=== PATIENT | female | born 1975 | race Hispanic/Latino ===

== ENCOUNTER 2019-05-21 06:19 | Day surgery (SDC) | payer BC ==
[2019-05-18 13:41] LABS: Absolute Lymphocytes (CBC) 1.6 K/uL (0.7-4.9); Basophils % 1.3 % (0-1.3); Hematocrit 31.9 % (36.0-45.0); Lymphocytes % 25.4 % (15.3-44.8); MPV 9.1 fL (7.6-11.3); RBC Red Blood Cell Count 4.56 M/uL (3.86-4.86)
[2019-05-18 13:54] LABS: Urine Appearance CLEAR; Urine Bilirubin NEGATIVE (NEG); Urine Blood NEGATIVE (NEG); Urine Color YELLOW; Urine Glucose NEGATIVE (NEG); Urine Protein NEGATIVE (NEG); Urine Urobilinogen 0.2 mg/dL (0.2-1.0); Urine pH 5.5 (5.0-7.0)
[2019-05-18 13:58] LABS: Urine Microscopic Reflex NO UMIC
[2019-05-18 18:15] LABS: Urine White Blood Cell Casts OK
[2019-05-18 18:20] LABS: Anisocytosis 1+; Blood Morphology Comment NOTED (NOT SEEN); Platelet Estimate ADEQ
--- OUTSIDE RECORDS SUMMARY | 2019-05-21 06:21 | XMS REPORT ---
:1975 Author Organization eClinicalWorks Care Team Providers Name Role Phone Herrera, Patrica Provider Role Unavailable Allergies, Adverse Reactions, Alerts Substance Reaction Event Type penicillin hives Drug Allergy Problems Problem Type Condition Code Onset Dates Condition Status Assessment Palpitations R00.2 Active Assessment Acquired hypothyroidism E03.9 Active Assessment Iron deficiency anemia, unspecified D50.9 Active iron deficiency anemia type Assessment Vitamin D deficiency E55.9 Active Problem Vitamin D deficiency E55.9 Active Problem Acquired hypothyroidism E03.9 Active Problem Palpitations R00.2 Active Problem Iron deficiency anemia, unspecified D50.9 Active iron deficiency anemia type Problem Pain in right knee M25.561 Active Problem Pain in left knee M25.562 Active Medications Medication Code Code Instructions Start End Status Dosage System Date Date Flonase [facility] 90267511145 50 MCG/DOSE Active 2 spray in Nasally Once a each day nostril Imitrex [facility] 85259759366 50 MG Orally Active 1 tablet Twice a day as needed ZyrTEC [facility] 18436025026 10 MG Orally Active 1 tablet Once a day Synthroid [facility] 58624911758 125 Active TAKE ONE TABLET BY MOUTH DAILY Ferrous Sulfate [facility] 76245055996 325 (65 Fe) MG Active 1 tablet Orally twice a day Levothyroxine [facility] 61492005479 125 MCG Orally Active 1 tablet Sodium Once a day on an empty stomach in the morning Results No Known Results Summary Purpose eClinicalWorks Submission
--- OUTSIDE RECORDS SUMMARY | 2019-05-21 06:21 | XMS REPORT ---
:1975 Author Organization eClinicalWorks Care Team Providers Name Role Phone Herrera, Na Provider Role Unavailable Allergies, Adverse Reactions, Alerts Substance Reaction Event Type penicillin hives Drug Allergy Problems Problem Type Condition Code Onset Dates Condition Status Assessment Iron deficiency anemia, unspecified D50.9 Active iron deficiency anemia type Assessment Acquired hypothyroidism E03.9 Active Assessment Palpitations R00.2 Active Assessment Seasonal allergic rhinitis, J30.2 Active unspecified trigger Assessment Vitamin D deficiency E55.9 Active Problem Palpitations R00.2 Active Problem Vitamin D deficiency E55.9 Active Problem Seasonal allergic rhinitis due to J30.1 Active pollen Problem Pain in left knee M25.562 Active Problem Iron deficiency anemia, unspecified D50.9 Active iron deficiency anemia type Problem Acquired hypothyroidism E03.9 Active Problem Pain in right knee M25.561 Active Medications Medication Code Code Instructions Start End Status Dosage System Date Date ZyrTEC [facility] 08425712069 10 MG Orally Feb , Active 1 tablet Once a day 2019 Flonase [facility] 67007772437 50 MCG/DOSE Active 2 spray in Nasally Once a each day nostril Synthroid [facility] 71602550289 125 Active TAKE ONE TABLET BY MOUTH DAILY Levothyroxine [facility] 87291870580 125 MCG Orally Active 1 tablet Sodium Once a day on an empty stomach in the morning Imitrex [facility] 12919227039 50 MG Orally Active 1 tablet Twice a day as needed Ferrous Sulfate [facility] 59379085987 325 (65 Fe) MG Active 1 tablet Orally twice a day Results No Known Results Summary Purpose eClinicalWorks Submission
--- OUTSIDE RECORDS SUMMARY | 2019-05-21 06:21 | XMS REPORT ---
:1975 Author Organization eClinicalWorks Care Team Providers Name Role Phone Herrera, Patrica Provider Role Unavailable Allergies, Adverse Reactions, Alerts Substance Reaction Event Type penicillin hives Drug Allergy Problems Problem Type Condition Code Onset Dates Condition Status Assessment Vitamin D deficiency E55.9 Active Assessment Iron deficiency anemia, unspecified D50.9 Active iron deficiency anemia type Assessment Palpitations R00.2 Active Problem Vitamin D deficiency E55.9 Active Problem Acquired hypothyroidism E03.9 Active Problem Palpitations R00.2 Active Problem Iron deficiency anemia, unspecified D50.9 Active iron deficiency anemia type Assessment Acquired hypothyroidism E03.9 Active Problem Pain in right knee M25.561 Active Problem Pain in left knee M25.562 Active Assessment Seasonal allergic rhinitis, J30.2 Active unspecified trigger Assessment Pain in left knee M25.562 Active Assessment Pain in right knee M25.561 Active Medications Medication Code Code Instructions Start End Status Dosage System Date Date Imitrex [facility] 79474451882 50 MG Orally Active 1 tablet Twice a day as needed ZyrTEC [facility] 18847108054 10 MG Orally Active 1 tablet Once a day Flonase ND 04758125963 50 MCG/DOSE Active 2 spray in Nasally Once a each day nostril Levothyroxine ND 15969432873 125 MCG Orally Active 1 tablet Sodium Once a day on an empty stomach in the morning Ferrous Sulfate [facility] 72499395812 325 (65 Fe) MG January 09, Active 1 tablet Orally twice a 2017 day Results No Known Results Summary Purpose eClinicalWorks Submission
--- OUTSIDE RECORDS SUMMARY | 2019-05-21 06:22 | XMS REPORT ---
:1975 Author Organization eClinicalWorks Care Team Providers Name Role Phone Herrera, Na Provider Role Unavailable Allergies, Adverse Reactions, Alerts Substance Reaction Event Type penicillin hives Drug Allergy Problems Problem Type Condition Code Onset Dates Condition Status Problem Pain in left knee M25.562 Active Problem Iron deficiency anemia, unspecified D50.9 Active iron deficiency anemia type Problem Seasonal allergic rhinitis, J30.2 Active unspecified trigger Problem Seasonal allergic rhinitis due to J30.1 Active pollen Problem BMI 29.0-29.9,adult Z68.29 Active Problem Acquired hypothyroidism E03.9 Active Problem Pain in right knee M25.561 Active Problem Palpitations R00.2 Active Problem Vitamin D deficiency E55.9 Active Assessment Seasonal allergic rhinitis, J30.2 Active unspecified trigger Assessment Vitamin D deficiency E55.9 Active Assessment Iron deficiency anemia, unspecified D50.9 Active iron deficiency anemia type Assessment BMI 29.0-29.9,adult Z68.29 Active Assessment Acquired hypothyroidism E03.9 Active Medications Medication Code Code Instructions Start End Status Dosage System Date Date Ferrous Sulfate [facility] 76104091619 325 (65 Fe) MG Active 1 tablet Orally twice a day Levothyroxine [facility] 59476271368 125 MCG Orally Active 1 tablet Sodium Once a day on an empty stomach in the morning Levothyroxine [facility] 71683958332 125 MCG Active TAKE ONE Sodium TABLET BY MOUTH EVERY MORNING ON AN EMPTY STOMACH Synthroid [facility] 33451496524 125 Active TAKE ONE TABLET BY MOUTH DAILY Imitrex ND 54247335791 50 MG Orally Active 1 tablet Twice a day as needed Flonase ND 66601253333 50 MCG/DOSE Active 2 spray in Nasally Once a each day nostril Results No Known Results Summary Purpose eClinicalWorks Submission
[2019-05-21] MEDS ORDERED: SCOPOLAMINE HYDROBROMIDE PATCH TD ONE (06:49)
[2019-05-21] MEDS ORDERED: Ringers Lactate 1,000 ML IV ONE ×3 (06:49→12:06)
[2019-05-21] MEDS ORDERED: CEFAZOLIN/SWI 2gm 2 GM/20 ML SYR ONE (06:50)
[2019-05-21] MEDS ORDERED: ROCURONIUM 50 MG/5 ML VIAL IV ONE (07:01)
[2019-05-21] MEDS ORDERED: PROPOFOL 200 MG/20 ML VIAL IV ONE (07:01)
[2019-05-21] MEDS ORDERED: ONDANSETRON 4 MG/2 ML VIAL ONE ×2 (07:02→11:36)
[2019-05-21] MEDS ORDERED: MIDAZOLAM HCL 2 MG/2 ML INJ ONE (07:02)
[2019-05-21] MEDS ORDERED: LIDOCAINE 2% MPF 5 ML VIAL ONE (07:02)
[2019-05-21] MEDS ORDERED: FENTANYL CITR 250 MCG/5 ML ONE (07:02)
[2019-05-21] MEDS ORDERED: dexAMETHasone 10 MG/ML VIAL ONE (07:02)
[2019-05-21] MEDS ORDERED: GLYCOPYRROLATE 0.2 MG/ML SYR ONE (07:05)
[2019-05-21] MEDS ORDERED: BUPIVACAINE 0.25% PF 10 ML VIAL ONE (07:39)
[2019-05-21] MEDS: BUPIVACAINE 0.25% PF 10 ML VIAL ONE ×3 (09:11→10:10)
[2019-05-21] MEDS ORDERED: KETOROLAC 30 MG/ML INJ ONE (09:57)
[2019-05-21] MEDS ORDERED: METHYLENE BLUE 0.5% 10 ML AMP ONE (10:07)
[2019-05-21] MEDS ORDERED: MORPHINE 10 MG/ML VIAL ONE (10:24)
[2019-05-21 12:08] VITALS: TEMP 98.2
[2019-05-21] MEDS ORDERED: METOCLOPRAMIDE 10 MG/2mL INJ ONE (12:17)
[2019-05-21 12:58] VITALS: O2SAT 99
[2019-05-21 13:33] VITALS: BP 110/52
--- NOTE | 2019-05-22 02:25 | OP ---
Date of Procedure: 05/21/2019 Surgeon: Marylou Joseph MD Tearer: Jaleesa Wallace. Preoperative Diagnoses: Menorrhagia (AUB-A/E), pelvic pain. Postoperative Diagnoses: Menorrhagia (AUB-A/E), pelvic pain, and endometriosis of the pelvic periton eum. Procedures Performed: Total laparoscopic hysterectomy, bilateral salpingectomy, endometriosis excisi on, and cystoscopy. Anesthesia: General endotracheal. Estimated Blood Loss: Minimal. Specimens: Uterus, bilateral tubes. Complications: None. Drains: None. Findings: Uterus, enlarged endometriosis seen in the left lateral wall, lateral and immediately supe rior to the ureteric tunnel on the left side. Other endometriotic implants in the bilateral tubal li gation area and on the utero-ovarian ligament. Cystoscopy: Both ureteric orifices were well visualized and strong jets of urine were seen from both and no evidence of any foreign body in the bladder. Indication: The patient is a 43-year-old with pelvic pain, heavy menstrual bleeding, failed medical treatment. Endometrial sampling was negative for atypia or malignancy. Recently quit smoking. So, not a good candidate for oral contraceptives. Declined depot medroxyprogesterone acetate. We discus sed endometrial ablation versus laparoscopic hysterectomy, and given the pain that the patient has, o ne which was not only in the left lower quadrant, but also in the low back. Possibility of adenomyos is was considered and she was consented for hysterectomy, bilateral salpingectomy with ovarian preser vation due to her age. She is a smoker and she had quit smoking 6 months ago. Description Of Procedure: After informed consent was verified, the patient was taken back to OR, clara tico in a supine fashion on the operating table. After general anesthesia given, she was placed in a dorsal lithotomy position using Angel stirrups. Pelvic exam performed. Uterus anteflexed. No adnex al masses. No nodularity in the cul-de-sac, uterus, and small bowel. Abdomen, vulva, vagina, and pe rineum were prepped and draped in a sterile fashion. Britt was placed to drain the bladder and large VCare was introduced into the uterus and fixed in place. This area was draped and Britt attached to cysto tubing for retrograde filling through another bag that was emptied 300. This was left on the floor for drainage. A 1 cm supraumbilical incision was made with a scalpel using the open laparoscopy technique. Fascia was incised and 0 Vicryl suture was used to tack on both ends. Sharp entry into the peritoneal cavit y. S-retractor was placed, Mine introduced, site of entry checked, unremarkable; upper abdominal s urface unremarkable as well. The patient was placed in steep Trendelenburg position. Uterus and claudette ateral tubes and ovaries were inspected and findings as above. 5 mm left lower quadrant and right lo wer quadrant ports were placed under direct vision. Suprapubic 8 mm port was placed. After visualizing the ureters from pelvic brim to the ureteric tunnel and they were noted without any anatomical distortion, then the surgery was started. Endometriosis was identified in the left later al wall, as discussed in the findings. Plan was to excise the endometriosis along with the hysterect estefania. Also with the tubes, the tubes were carefully dissected. The left 1 starting at the distal end and c oming towards the proximal end. Endometriosis was excised from the mesosalpinx and the utero-ovarian ligament and included with the specimen and the specimen was left in the posterior cul-de-sac. Then , on the right side, the tube was disconnected partially and then the procedure started. Utero-ovari an ligament was taken down. The area of the endometriosis on the utero-ovarian ligament was cauteriz ed. Then, round ligament was taken down. There was small bleeding at the Govea artery. This was cauterized and cut again. Then, the broad ligament was opened up, anterior peritoneum raised to crea te the bladder flap and posterior peritoneum taken down to the uterosacrals, and then the broad ligam ent was skeletonized with the help of the LigaSure. Vessels were exposed and then on the opposite si de, similar dissection was performed. Utero-ovarian ligament, round ligament were all taken down the anterior peritoneum to connect the bladder flap and posterior peritoneum to the uterosacral, exposin g the broad ligament vessels. These were taken down with the LigaSure and the vessels were exposed o n the right side and skeletonized. Then, the bladder flap was opened up. Vesicovaginal space was en tered and the bladder was dissected inferiorly at least 1.5 cm from the edge of the VCare cup. Once this was performed on both sides, mostly staying in the center, then the vessels were taken down with the help of the bipolar basket tip and then the LigaSure. Cardinal ligament was taken down as well. On the left side, similar dissection was performed and the vessels were disconnected and then the b road ligaments were taken down. There was slightly more bleeding on this side than on the opposite s ronny, but it was minimal. Circumferential colpotomy performed with a monopolar hook blade and specime n pulled out through the vagina. The tube on the right side was removed completely with the LigaSure and then both tubes were retrieved through the vagina as well. The endometriosis on the left lateral wall was dissected and included in the specimen as dissection w as performed when the posterior broad ligament was opened up. Lateral dissection was performed caref ully making sure that this was not close to the ureter. The ureter was dissected inferiorly and medi ally. This was included with serosal specimen off the uterus. Vaginal cuff was closed after thorough irrigation and suction were performed with 0 Vicryl sutures. There were 2 simples at both ends and 3 [id number]-[id number] in the middle, closing all layers. Right ovariopexy was performed as the ovary appeared to be hanging too far with 3-0 Vicryl suture and this was sutured to the base of the round ligament and these were tied loosely just enough to close without creating a window. After thorough irrigation and suction were performed, there was excellent hemostasis. All the trocar s were removed under direct vision. Local was injected, 0.25% Marcaine 10 cc in all 4 port sites at the fascia and the skin. Fascia at the umbilicus closed with a 0 Vicryl in neeqje-ay-rigmu fashion a nd all other incisions closed with the help of 4-0 Vicryl interrupted sutures and Dermabond placed. The vaginal sponge with the lap and the Britt were all removed. Cystoscopy was performed with a 17-F rench sheath, 30-degree lens, normal saline. Excellent strong jets of urine from both. Methylene bl ue was injected while I was still closing the cuff, and so there were visible jets of urine from both . Bladder was drained out. No evidence of any foreign body. The patient was recovered from anesthe sadaf after instrument, needle, and sponge counts x2 were correct at the end of the case. The patient will follow up with me in 1 week. NAHID/LAURI Voice ID: [id number] Report ID: [id number]
== END 2019-05-21 13:35 | disposition home or self-care (01) ==
LOC: OR 06:19
PROVIDERS: ATTEND Obstetrics & Gynecology
PROC: 0UT74ZZ Resection of Bilateral Fallopian Tubes, Percutaneous Endoscopic Approach (ICD-10-PCS; 2019-05-21)
PROC: 0DBW4ZZ Excision of Peritoneum, Percutaneous Endoscopic Approach (ICD-10-PCS; 2019-05-21)
PROC: 0US04ZZ Reposition Right Ovary, Percutaneous Endoscopic Approach (ICD-10-PCS; 2019-05-21)
PROC: 0UT94ZZ Resection of Uterus, Percutaneous Endoscopic Approach (ICD-10-PCS; principal; 2019-05-21 07:30)
DX: N92.0 Excessive and frequent menstruation with regular cycle (principal); N80.3 Endometriosis of pelvic peritoneum; R10.2 Pelvic and perineal pain; E03.9 Hypothyroidism, unspecified; F32.9 Major depressive disorder, single episode, unspecified; F41.9 Anxiety disorder, unspecified; M19.90 Unspecified osteoarthritis, unspecified site; Z88.0 Allergy status to penicillin; Z87.891 Personal history of nicotine dependence
CPT/HCPCS: 58571; 58662; 85025; 36415; 86900; 86850; 81025; 86901; 88307; 81003; 58999; J2704; J2765; J2250; J3010; J1100; J0690; J2405 ×2

== ENCOUNTER 2021-02-26 19:01 | Emergency (ER) | payer BC ==
--- OUTSIDE RECORDS SUMMARY | 2021-02-26 19:03 | XMS REPORT | Continuity of Care Document ---
:1975 Author Organization [facility] t Address [address] [place] [address] Care Team Providers Name Role Phone Unavailable Unavailable Unavailable Problems This patient has no known problems. Allergies, Adverse Reactions, Alerts Allergy Allergy Status Severity Reaction(s) Onset Inactive Treating Comm ents Source Name Type Date Date Clinician penicill Adverse Active hives [facility] Medications Ordered Filled Start Stop Current Ordering Indication Dosage Frequency Signature Comments Components Source Medication Medication Date Date Medication? Clinician (SIG) Name Name Ferrous Ferrous 2018-0 Yes Na Herrera [address] [facility] Sulfate Sulfate 5-03 [facility] Flonase Flonase Yes Na Herrera [address] [facility] Levothyroxi Levothyroxi Yes Na Herrera [address] [facility] ne Sodium ne Sodium on an [facility] - empty [facility] stomach in l the Outpati morning ent Clinics Levothyroxi Levothyroxi Yes Na Herrera TAKE ONE [facility] ne Sodium ne Sodium TABLET BY [facility] EVERY l MORNING ON Outpati AN EMPTY ent STOMACH Clinics Flonase Flonase Yes Na Herrera [address] [facility] Procedures This patient has no known procedures. Encounters Start End Encounter Admission Attending Care Care Encounter Source Date/Time Date/Time Type Type Clinicians Facility Department ID 2020-12-01 2020-12-01 [facility] [id number] [facility] 2020-11-03 2020-11-03 [facility] [id number] [facility] 2020-07-14 2020-07-14 [facility] [id number] [facility] 2019-06-09 2019-06-09 [facility] [id number] [facility] 13:20[facility] 13:20:00 [facility] [employer] [facility] Outpati ent Clinics 2018-12-08 2018-12-08 [facility] [id number] [facility] 13:20:00 13:20:00 [facility] [employer] [facility] [employer] [facility] Outpati ent Clinics 2018-05-07 2018-05-07 [facility] [id number] [facility] 14:30[facility]00 14:30:00 [facility] Outpati ent Clinics 2018-02-05 2018-02-05 [facility] [id number] [facility] 14:30:00 14:30:00 [facility] Medicine Outpati ent Clinics 2018-01-09 2018-01-09 [facility] [id number] [facility] 14:45:00 14:45:00 [facility] Outpat[facility] Clinics Results This patient has no known results.
[2021-02-26] MEDS ORDERED: ACETAMINOPHEN 500 MG TAB ONE (19:53)
[2021-02-26] MEDS ORDERED: DOXYCYCLINE 100 MG CAP PO ONE (20:12)
[2021-02-26] MEDS ORDERED: TETANUS & DIPHTHERIA TOX,ADULT 0.5 ML VIAL ONE (20:12)
[2021-02-26] MEDS ORDERED: CEFAZOLIN SODIUM 1 GM/VIAL ONE (20:12)
[2021-02-26] MEDS ORDERED: BUPIVACAINE 0.5% PF 10 ML VIAL ONE (20:12)
[2021-02-26] MEDS ORDERED: WATER FOR INJ,STERILE 10 ML ONE (20:12)
[2021-02-26] MEDS ORDERED: LIDOCAINE 1% MPF 30 ML VIAL ONE (20:13)
--- NOTE | 2021-02-26 21:32 | RAD REPORT ---
EXAM DESCRIPTION: RAD - Hand Left 3 View - 02/26/2021 8:59 pm CLINICAL HISTORY: laceration COMPARISON: None. FINDINGS: No fracture, dislocation or periosteal reaction noted. Laceration is seen near the ventral aspect third digit base. A punctate 1 mm foreign body is seen. No other foreign bodies confirmed. IMPRESSION: Punctate 1 mm size foreign body within a laceration base of the third digit left hand.
--- NOTE | 2021-02-26 21:34 | RAD REPORT ---
EXAM DESCRIPTION: RAD - Hand Right 3 View - 02/26/2021 8:59 pm CLINICAL HISTORY: Laceration COMPARISON: No comparisons FINDINGS: No fracture is identified. There is no dislocation or periosteal reaction noted. On the o blique view there is a punctate 1 mm radiopaque density between the distal shaft second and third met acarpal bones. This is not confirmed on the other two views. Lateral view shows a film artifact in th e soft tissues. IMPRESSION: No right hand bone or joint abnormality. Questionable radiopaque punctate 1 mm foreign body between the second and third metacarpals. This is not seen on the other two views is potentially artifact. Correlation is needed to determine if there is a laceration in this region.
--- NOTE | 2021-02-26 21:49 | ER ---
Nurse's Notes [facility] Name: Anat Elaine Age: 45 yrs Sex: Female : 1975 Arrival Date: 02/26/2021 Time: 19:05 Bed 26 Private MD: Diagnosis: Laceration without foreign body of right hand;Laceration with foreign body of left hand Presentation: 02/26 19:27 Chief complaint: Patient states: Fell on [place] and landed on her hands lac to ea both hands, occurred about an hour ago. Coronavirus screen: At this time, the client does not indicate any symptoms associated with coronavirus-19. Ebola Screen: No symptoms or risks identified at this time. Complicating Factors: There are no complicating factors for this patient. Initial Sepsis Screen: Does the patient meet any 2 criteria? No. Patient's initial sepsis screen is negative. Does the patient have a suspected source of infection? No. Patient's initial sepsis screen is negative. Risk Assessment: Do you want to hurt yourself or someone else? Patient reports no desire to harm self or others. 19:27 Method Of Arrival: Ambulatory ea 19:27 Acuity: TOMMY 3 ea Historical: - Allergies: 19:35 PENICILLINS; em - PMHx: 19:35 None; em - PSHx: 19:35 None; em - Immunization history:: Adult Immunizations not up to date. - Social history:: Smoking status: unknown. Screenin:35 Abuse screen: Denies threats or abuse. Nutritional screening: No deficits noted. em Tuberculosis screening: No symptoms or risk factors identified. Fall Risk Fall in past 12 months (25 points). No secondary diagnosis (0 pts). Total Galindo Fall Scale indicates Low Risk Score (25-44 pts). Side Rails Up X 2 Placed close to Nursing Station Family Present and informed to notify staff if they need to leave bedside. Assessment: 19:40 General: Appears in no apparent distress. uncomfortable, Behavior is calm, cooperative. em Pain: Complains of pain in right hand and left hand. Neuro: Level of Consciousness is awake, alert, obeys commands, Oriented to person, place, time, situation. Cardiovascular: Capillary refill < 3 seconds Patient's skin is warm and dry. Respiratory: Airway is patent Respiratory effort is even, unlabored, Respiratory pattern is regular, symmetrical. Derm: Skin is intact, is healthy with good turgor, Skin is pink, warm \T\ dry. Musculoskeletal: Capillary refill < 3 seconds, Range of motion: intact in all extremities. Injury Description: Laceration sustained to palm of right hand and palm of left hand is clean, 2.6 to 7.5 cm long, bleeding moderately, is bleeding a small amount. 21:30 Reassessment: Patient appears in no apparent distress at this time. Patient and/or em family updated on plan of care and expected duration. Pain level reassessed. Patient is alert, oriented x 3, equal unlabored respirations, skin warm/dry/pink. Vital Signs: 20:00 BP 134 / 87; Pulse 95; Resp 18; Temp 98.5; Pulse Ox 95% on R/A; Weight 83.91 kg; Height em 5 ft. 7 in. (170.18 cm); 20:00 Body Mass Index 28.97 (83.91 kg, 170.18 cm) em ED Course: 19:05 Patient arrived in ED. cf2 19:31 Triage completed. ea 19:35 Arm band placed on. em 19:35 Patient has correct armband on for positive identification. em 19:37 Maxwell Yost NP is PHCP. pm1 19:37 Marino Loza MD is Attending Physician. pm1 19:45 Rocky Ronquillo, RN is Primary Nurse. em 20:59 Hand Left 3 View XRAY In Process Unspecified. EDMS 20:59 Hand Right 3 View XRAY In Process Unspecified. EDMS 21:30 Assist provider with laceration repair on left hand and right hand that was between 2.6 em to 7.5 cm using sutures. Set up tray. Performed by Maxwell Yost CLAIM ANALYST Dressed with 4X4s, Kerlix, Neosporin, Patient tolerated well. 21:48 Khang Purcell MD is Referral Physician. pm1 21:57 Hand Left 3 View XRAY In Process Unspecified. EDMS 22:18 Patient did not have IV access during this emergency room visit. em Administered Medications: 19:34 Drug: Tylenol 1000 mg Route: PO; ea 21:26 Follow up: Response: No adverse reaction em 19:56 Drug: Tetanus-Diphtheria Toxoid Adult 0.5 ml {Cleaner Signs: [facility]. Exp: em 10/29/2022. Lot #: [id number]. } Route: IM; Site: right deltoid; 21:27 Follow up: Response: No adverse reaction em 19:59 Drug: Ancef (cefazolin) 1 grams Route: IM; Site: left gluteus; em 21:26 Follow up: Response: No adverse reaction em 19:59 Drug: Doxycycline 100 mg Route: PO; em 21:26 Follow up: Response: No adverse reaction em 20:00 Drug: Lidocaine (1 %) 5 ml Volume: 5 ml; Route: Infiltration; em 20:30 Follow up: Response: No adverse reaction; Pain is decreased em 20:00 Drug: Bupivacaine (0.5 %) 10 ml Volume: 10 ml; Route: Infiltration; em 20:30 Follow up: Response: No adverse reaction; Pain is decreased em Outcome: 21:48 Discharge ordered by MD. pm1 22:18 Discharged to home ambulatory, with family. em 22:18 Condition: improved 22:18 Discharge instructions given to patient, family, Instructed on discharge instructions, follow up and referral plans. medication usage, wound care, Demonstrated understanding of instructions, follow-up care, medications, wound care, Prescriptions given X 2. 22:19 Patient left the ED. em Signatures: Dispatcher [employer] Rocky Cerna RN RN em Marinas, Patrick, CLAIM ANALYST CLAIM ANALYST pm1 Melonie Elias RN RN ea Frazier, Celesta cf2 Corrections: (The following items were deleted from the chart) 22:19 22:18 No provider procedures requiring assistance completed. em em
--- NOTE | 2021-02-26 21:49 | EDPHYS ---
Physician Documentation [facility] Name: Anat Elaine Age: 45 yrs Sex: Female : 1975 Arrival Date: 02/26/2021 Time: 19:05 Bed 26 Private MD: ED Physician Marino Loza HPI: 02/26 19:46 This 45 yrs old Female presents to ER via Ambulatory with complaints of pm1 Laceration To Hand. 19:46 The patient has a laceration related to: Fishing occurred outdoors, and fall on oyster pm1 bed. The laceration(s) is(are) located on the palm of right hand and palm of left hand. Onset: The symptoms/episode began/occurred just prior to arrival. Associated signs and symptoms: The patient has no apparent associated signs or symptoms, Pertinent negatives: deformity, numbness distal to injury. The patient has not experienced similar symptoms in the past. The patient has not recently seen a physician. Historical: - Allergies: 19:35 PENICILLINS; em - PMHx: 19:35 None; em - PSHx: 19:35 None; em - Immunization history:: Adult Immunizations not up to date. - Social history:: Smoking status: unknown. ROS: 19:46 Constitutional: Negative for fever, chills, and weight loss, Cardiovascular: Negative pm1 for chest pain, palpitations, and edema, Respiratory: Negative for shortness of breath, cough, wheezing, and pleuritic chest pain. 19:46 MS/extremity: Negative for decreased range of motion, deformity. 19:46 Skin: Positive for laceration(s), of the palm of right hand and palm of left hand. 19:46 All other systems are negative. pm1 Exam: 19:46 Constitutional: This is a well developed, well nourished patient who is awake, alert, pm1 and in no acute distress. Head/Face: Normocephalic, atraumatic. Neck: Trachea midline, no thyromegaly or masses palpated, and no cervical lymphadenopathy. Supple, full range of motion without nuchal rigidity, or vertebral point tenderness. No Meningismus. 19:46 Eyes: Exam is negative for acute changes, Extraocular movements: intact throughout, Conjunctiva: no acute changes, no injection. 19:46 ENT: Exam is negative for acute changes, Mouth: Lips: normal, Oral mucosa: normal, pink and intact, moist. 19:46 Cardiovascular: Rate: normal, Rhythm: regular, Pulses: no pulse deficits are appreciated. 19:46 Respiratory: Exam negative for acute changes, respiratory distress, shortness of breath. 19:46 Musculoskeletal/extremity: ROM: full active range of motion, in the left hand and right hand and left wrist and right wrist, Circulation is intact in all extremities. Sensation intact. 19:46 Skin: injury, laceration(s), the wound is approximately 3 cm(s), with a depth of 1 cm(s), of the heel of right hand, the second wound is approximately 3 cm(s), with a depth of 0.3 cm(s), of the palmar aspect of proximal phalanx of left middle finger and palm of left hand. 19:46 Neuro: Exam negative for acute changes, Orientation: is normal, Mentation: is normal, Motor: is normal, moves all fours, strength is 5/5 in all extremities. Vital Signs: 20:00 BP 134 / 87; Pulse 95; Resp 18; Temp 98.5; Pulse Ox 95% on R/A; Weight 83.91 kg; Height em 5 ft. 7 in. (170.18 cm); 20:00 Body Mass Index 28.97 (83.91 kg, 170.18 cm) em Laceration: 21:35 Wound Repair of 3cm ( 1.2in ) subcutaneous laceration to heel of right hand. pm1 Irregularly shaped.. Distal neuro/vascular/tendon intact. Anesthesia: Local anesthetic administered with 3 mls of Lido/Marcaine. Wound prep: Extensive cleansing with betadine with hibiclenz by nd, Wound irrigation with saline by nd, Particulate matter removal of dirt, Wound explored extensively, Copious irrigation. Skin closed with 3 4-0 Prolene using simple sutures and sterile technique. Dressed with 4x4's, Gina. Patient tolerated well. 21:35 Wound Repair of 3cm ( 1.2in ) subcutaneous laceration to palmar aspect of proximal pm1 phalanx of left middle finger and palm of left hand. Irregularly shaped.. Distal neuro/vascular/tendon intact. Anesthesia: Local anesthetic administered with 2 mls of Lido/Marcaine. Wound prep: Extensive cleansing with betadine with hibiclenz by me, Wound irrigation with saline by me, Particulate matter removal of dirt by me, Wound explored extensively, Copious irrigation. Skin closed with 1 4-0 Prolene using simple sutures and sterile technique. Dressed with 4x4's, Gina. Patient tolerated well. MDM: 19:40 Patient medically screened. pm1 21:41 ED course: Foreign body present to right hand on x-ray not located near laceration. pm1 Likely dirt present on surface of hand. 21:41 Special discussion: I discussed in detail with the patient the higher chance of wound pm1 infection based on his presenting history. unable to remove left hand punctuate 1 mm foreign body. Wound explored extensively, scrubbed with Hibiclens brush, and copiously irrigated with Betadine and NS. Laceration area of the foreign body was not closed and explained to patient. 21:41 Counseling: I had a detailed discussion with the patient and/or guardian regarding: the pm1 historical points, exam findings, and any diagnostic results supporting the discharge/admit diagnosis, radiology results, the need for outpatient follow up, a hand specialist, to return to the emergency department if symptoms worsen or persist or if there are any questions or concerns that arise at home. 21:50 ED course: [place] reviewed. pm1 22:14 Data reviewed: vital signs. Data interpreted: Pulse oximetry: on room air is 95 %. pm1 Interpretation: normal. 02/26 20:29 Order name: Hand Left 3 View XRAY; Complete Time: 21:40 pm1 02/26 20:29 Order name: Hand Right 3 View XRAY; Complete Time: 21:40 pm1 02/26 21:27 Order name: Hand Left 3 View XRAY pm1 02/26 19:44 Order name: Prolene, Sutures; Complete Time: 19:59 pm1 02/26 19:44 Order name: Gloves, Sterile; Complete Time: 19:59 pm1 02/26 19:44 Order name: Setup Suture Tray; Complete Time: 19:59 pm1 Administered Medications: 19:34 Drug: Tylenol 1000 mg Route: PO; ea 21:26 Follow up: Response: No adverse reaction em 19:56 Drug: Tetanus-Diphtheria Toxoid Adult 0.5 ml {Partner: [employer]. Exp: em 10/29/2022. Lot #: [id number]. } Route: IM; Site: right deltoid; 21:27 Follow up: Response: No adverse reaction em 19:59 Drug: Ancef (cefazolin) 1 grams Route: IM; Site: left gluteus; em 21:26 Follow up: Response: No adverse reaction em 19:59 Drug: Doxycycline 100 mg Route: PO; em 21:26 Follow up: Response: No adverse reaction em 20:00 Drug: Lidocaine (1 %) 5 ml Volume: 5 ml; Route: Infiltration; em 20:30 Follow up: Response: No adverse reaction; Pain is decreased em 20:00 Drug: Bupivacaine (0.5 %) 10 ml Volume: 10 ml; Route: Infiltration; em 20:30 Follow up: Response: No adverse reaction; Pain is decreased em Disposition: 02/27 04:18 Co-signature as Attending Physician, Marino Loza MD. 7 Disposition: 02/26/21 21:48 Discharged to Home. Impression: Laceration without foreign body of right hand, Laceration with foreign body of left hand. - Condition is Stable. - Discharge Instructions: Laceration Care, Adult. - Prescriptions for Doxycycline Hyclate 100 mg Oral Tablet - take 1 tablet by ORAL route every 12 hours; 20 tablet. Tramadol 50 mg Oral Tablet - take 1 tablet by ORAL route every 8 hours as needed; 12 tablet. - Work release form, Medication Reconciliation Form, Thank You Letter, Antibiotic Education, Prescription Opioid Use form. - Follow up: Emergency Department; When: As needed; Reason: Worsening of condition. Follow up: [facility]; When: 2 - 3 days; Reason: Recheck today's complaints, Continuance of care, Re-evaluation by your physician. - Problem is new. - Symptoms have improved. Signatures: Dispatcher [employer] EDRocky Davidson RN RN Maxwell Rivera, MIKE [employer]OP HAMMER SETTER UP pm1 Melonie Elisa RN RN ea Holmes, Maurice, MD MD 7 Corrections: (The following items were deleted from the chart) 02/26 22:19 21:48 02/26/2021 21:48 Discharged to Home. Impression: Laceration without foreign body em of right hand; Laceration with foreign body of left hand. Condition is Stable. Discharge Instructions: Laceration Care, Adult. Prescriptions for Doxycycline Hyclate 100 mg Oral Tablet - take 1 tablet by ORAL route every 12 hours; 20 tablet, Diclofenac Sodium 75 mg Oral Tablet, Delayed Release (E.C.) - take 1 tablet by ORAL route 2 times per day As needed; 30 tablet. and Forms are Medication Reconciliation Form, Thank You Letter, Antibiotic Education, Prescription Opioid Use. Follow up: Emergency Department; When: As needed; Reason: Worsening of condition. Follow up: [facility]; When: 2 - 3 days; Reason: Recheck today's complaints, Continuance of care, Re-evaluation by your physician. Problem is new. Symptoms have improved. pm1
[2021-02-26] MEDS ORDERED: TRAMADOL HCL 50 MG TAB ONE (22:20)
[2021-02-26 22:33] VITALS: BP 134/87; TEMP 98.5; O2SAT 95
--- NOTE | 2021-02-27 07:55 | RAD REPORT ---
EXAM DESCRIPTION: RAD - Hand Left 3 View - 02/26/2021 9:58 pm CLINICAL HISTORY: laceration, foreign body removal COMPARISON: February 26 FINDINGS: No new bone or joint finding. Laceration at the base of the third digit again noted. Punct ate foreign body or foreign body remnant is still seen on these images.
== END 2021-02-26 22:19 | disposition home or self-care (01) ==
LOC: ER 19:01
PROC: 0JQK0ZZ Repair Left Hand Subcutaneous Tissue and Fascia, Open Approach (ICD-10-PCS; principal; 2021-02-26)
PROC: 0JQJ0ZZ Repair Right Hand Subcutaneous Tissue and Fascia, Open Approach (ICD-10-PCS; 2021-02-26)
DX: S61.412A Laceration without foreign body of left hand, initial encounter (principal); S61.411A Laceration without foreign body of right hand, initial encounter; W26.8XXA Contact with other sharp object(s), not elsewhere classified, initial encounter; Z23 Encounter for immunization; Z88.0 Allergy status to penicillin
CPT/HCPCS: 73130 ×3; 90714; 12002; J0690

== ENCOUNTER 2024-01-15 14:22 | Emergency (ER) | payer BC ==
--- OUTSIDE RECORDS SUMMARY | 2024-01-15 14:25 | XMS REPORT | Continuity of Care Document ---
Author Name Unknown Address [address] [facility] [address] [place] [address] [facility] thconnect Address [address] [facility] [place] [address] Care Team Providers Care Beam House Inspector Name Role Phone BERNIE CARRILLO Primary Care Physician Unavailab Janice Fletcher Attending Clinician Unavailable Flory Hurd Attending Clinician Unavailable Bernie Carrillo Attending Clinician Unavailable MICKIE PINEDA Attending Clinician Unavailable Elvia Samuel DO Attending Clinician Mickie Pineda MD Attending Clinician [phone] Doctor Unassigned, [place] Attending Clinician U navailable [email or web address] Attending Clinician Unavaila SANDHYA Proctor Attending Clinician Unavailable [email or web address] Admitting Clinician Unavaila freddie Payers Payer Name Policy Type Policy Number Effective Date Expirati on Date Source [facility] 6 [id number] 2018 00:00:00 [facility] Problems Condition Name Condition Details Condition Category Status Onset Date Resolution Date Last Treatment Date Treating Clinician Comments Source Acquired hypothyroi dism Acquired hypothyroi dism Disease Active 10-08 00:00: 00 [facility] Allergic rhinitis due to pollen Allergic rhinitis due to pollen Disease Active 10-08 00:00: 00 [facility] Seasonal allergic rhinitis Seasonal allergic rhinitis Disease Active 10-08 00:00: 00 [facility] Intractabl e migraine with aura with status migrainosu s Intractabl e migraine with aura with status migrainosu s Disease Active 10-08 00:00: 00 [facility] Iron deficiency anemia, unspecifie d iron deficiency anemia type Iron deficiency anemia, unspecifie d iron deficiency anemia type Disease Active 10-08 00:00: 00 [facility] Laceration of palm Laceration of palm Disease Active 10-08 00:00: 00 [facility] Migraine without aura and without status migrainosu s, not intractabl e Migraine without aura and without status migrainosu s, not intractabl e Disease Active 10-08 00:00: 00 [facility] Mixed hyperlipid emia Mixed hyperlipid emia Disease Active 10-08 00:00: 00 [facility] Pain in left knee Pain in left knee Disease Active 10-08 00:00: 00 [facility] Pain in right knee Pain in right knee Disease Active 10-08 00:00: 00 [facility] Palpitatio ns Palpitatio ns Disease Active 10-08 00:00: 00 [facility] Vitamin D deficiency Vitamin D deficiency Disease Active 10-08 00:00: 00 [facility] [id number] BMI 30.0-30.9, adult Problem [facility] [id number] Pain in left knee Problem [facility] [id number] Pain in right knee Problem [facility] [id number] BMI 29.0-29.9, adult Problem [facility] Allergies, Adverse Reactions, Alerts Allergy Name Allergy Type Status Severity Reaction(s) Onset Date Inactive Date Treating Clinician Comments Source Penicill ins Propensi ty to adverse reaction s Active Hives 2020-09 00:00: 00 [facility] PENICILL INS Drug Class Active Hives 2020-09 00:00: 00 [facility] Penicill ins Propensi ty to adverse reaction s Active Hives 2020-09 00:00: 00 [facility] Penicill ins Allergy to substanc e Active Hives 05-18 00:00: 00 [facility] 0 Drug allergy Active hives [facility] Social History Social Habit Start Date Stop Date Quantity Comments Source History SDOH Alcohol Frequency [facility] History SDOH [facility] St[facility]inks [facility] History SDOH Alcohol Binge [facility] Sexual orientation [facility] Alcoholic beverage intake 2023-12-15 00:00:00 2023-12-15 00:00:00 Current drinker of alcohol (finding) [facility] Alcohol Comment 2023-12-15 00:00:00 2023-12-15 00:00:00 Special occasions [facility] Tobacco use and exposure 2023-12-15 00:00:00 2023-12-15 00:00:00 Smokeless tobacco non-user [facility] History of Social function 2023-12-11 00:00:00 2023-12-11 00:00:00 [facility] Alcohol intake 2023-10-15 00:00:00 2023-10-15 00:00:00 Current drinker of alcohol (finding) [facility] Exposure to SARS-CoV-2 (event) 2022 00:00:00 2022-07-13 09:09:00 Not sure [facility] History of tobacco use 2018-11-13 00:00:00 Cigarette Smoker [facility] Sex assigned at 1975 00:00:00 1975 00:00:00 F [facility] Smoking Status Start Date Stop Date Source Ex-smoker 2023-12-15 00:00:00 2023-12-15 00:00:00 [facility] Never Smoker [facility] Medications Ordered Medication Name Filled Medication Name Start Date Stop Date Current Medication? Ordering Clinician Indication Dosage Frequency Signature (SIG) Comments Components Source ferrous sulfate 325 (65 Fe) MG EC tablet 12-10 11:12: 44 Yes Q12H every 12 (twelve) hours. [facility] levothyroxi ne (Synthroid, Levoxyl) 100 MCG tablet 12-10 11:12: 44 Yes 100ug Take 100 mcg by mouth every morning. ON AN EMPTY STOMACH [facility] fluticasone propionate (FLONASE ALLERGY RELIEF) 50 mcg/actuati on nasal spray 10-15 08:36: 00 Yes 2 spray in each nostril Nasally Once a day for 90 days [facility] fluticasone propionate (FLONASE ALLERGY RELIEF) 50 mcg/actuati on nasal spray 10-08 10:11: 45 Yes 2 spray in each nostril Nasally Once a day for 90 days [facility] ZINC ORAL 2021-09 09:37: 49 Yes Take by mouth. [facility] Levothyroxi ne Sodium 137 MCG Levothyroxi ne Sodium 137 MCG 2021-09 00:00: 00 No QD Levothyrox ine Sodium 137 MCG Levothyroxi ne Sodium 137 MCG Levothyroxi ne Sodium 137 MCG 2021-09 00:00: 00 No QD Levothyrox ine Sodium 137 MCG mv-mn/iron/ folic acid/herb 190 (VITAMIN D3 COMPLETE ORAL) 2020-09 10:44: 31 Yes Take by mouth. [facility] Ativan 0.5 MG Ativan 0.5 MG 05-10 00:00: 00 No Ativan 0.5 MG Ativan 0.5 MG Ativan 0.5 MG 05-10 00:00: 00 No Ativan 0.5 MG Ativan 0.5 MG Ativan 0.5 MG 05-10 00:00: 00 No Ativan 0.5 MG Ativan 0.5 MG Ativan 0.5 MG 05-10 00:00: 00 No Ativan 0.5 MG Ativan 0.5 MG Ativan 0.5 MG 05-10 00:00: 00 No Ativan 0.5 MG Imitrex 50 MG Imitrex 50 MG 05-03 00:00: 00 No 1{table t_as_ne eded} Imitrex 50 MG Ferrous Sulfate Ferrous Sulfate 01-09 00:00: 00 Yes Na Carrillo 1 tablet [facility] Flonase Flonase Yes Na Carrillo 2 spray in each nostril [facility] Levothyroxi ne Sodium Levothyroxi ne Sodium Yes Na Carrillo 1 tablet on an empty stomach in the morning [facility] Levothyroxi ne Sodium Levothyroxi ne Sodium Yes Na Carrillo TAKE ONE TABLET BY MOUTH EVERY MORNING ON AN EMPTY STOMACH [facility] Flonase Flonase Yes Na Carrillo 2 spray in each nostril [facility] Flonase 50 MCG/DOSE Flonase 50 MCG/DOSE No 2{spray _in_eac h_nostr il} QD Flonase 50 MCG/DOSE Flonase 50 MCG/DOSE Flonase 50 MCG/DOSE No 2{spray _in_eac h_nostr il} QD Flonase 50 MCG/DOSE Imitrex 50 MG Imitrex 50 MG No 1{table t_as_ne eded} Imitrex 50 MG Imitrex 50 MG Imitrex 50 MG No 1{table t_as_ne eded} Imitrex 50 MG Flonase 50 MCG/DOSE Flonase 50 MCG/DOSE No 2{spray _in_eac h_nostr il} QD Flonase 50 MCG/DOSE Ferrous Sulfate 325 (65 Fe) MG Ferrous Sulfate 325 (65 Fe) MG No 1{table t} BID Ferrous Sulfate 325 (65 Fe) MG Flonase 50 MCG/DOSE Flonase 50 MCG/DOSE No 2{spray _in_eac h_nostr il} QD Flonase 50 MCG/DOSE Imitrex 50 MG Imitrex 50 MG No 1{table t_as_ne eded} Imitrex 50 MG Flonase 50 MCG/DOSE Flonase 50 MCG/DOSE No 2{spray _in_eac h_nostr il} QD Flonase 50 MCG/DOSE Imitrex 50 MG Imitrex 50 MG No 1{table t_as_ne eded} Imitrex 50 MG Victoza 18 MG/3ML Victoza 18 MG/3ML No Victoza 18 MG/3ML Flonase 50 MCG/DOSE Flonase 50 MCG/DOSE No 2{spray _in_eac h_nostr il} QD Flonase 50 MCG/DOSE Flonase 50 MCG/DOSE Flonase 50 MCG/DOSE No 2{spray _in_eac h_nostr il} QD Flonase 50 MCG/DOSE Levothyroxi ne Sodium 112 MCG Levothyroxi ne Sodium 112 MCG No QD Levothyrox ine Sodium 112 MCG Victoza 18 MG/3ML Victoza 18 MG/3ML No Victoza 18 MG/3ML Ferrous Sulfate 325 (65 Fe) MG Ferrous Sulfate 325 (65 Fe) MG No 1{table t} BID Ferrous Sulfate 325 (65 Fe) MG Ferrous Sulfate 325 (65 Fe) MG Ferrous Sulfate 325 (65 Fe) MG No 1{table t} BID Ferrous Sulfate 325 (65 Fe) MG Flonase 50 MCG/DOSE Flonase 50 MCG/DOSE No 2{spray _in_eac h_nostr il} QD Flonase 50 MCG/DOSE Ferrous Sulfate 325 (65 Fe) MG Ferrous Sulfate 325 (65 Fe) MG No 1{table t} BID Ferrous Sulfate 325 (65 Fe) MG Flonase 50 MCG/DOSE Flonase 50 MCG/DOSE No 2{spray _in_eac h_nostr il} QD Flonase 50 MCG/DOSE Flonase 50 MCG/DOSE Flonase 50 MCG/DOSE No 2{spray _in_eac h_nostr il} QD Flonase 50 MCG/DOSE Flonase 50 MCG/DOSE Flonase 50 MCG/DOSE No 2{spray _in_eac h_nostr il} QD Flonase 50 MCG/DOSE Flonase 50 MCG/DOSE Flonase 50 MCG/DOSE No 2{spray _in_eac h_nostr il} QD Flonase 50 MCG/DOSE Flonase 50 MCG/DOSE Flonase 50 MCG/DOSE No 2{spray _in_eac h_nostr il} QD Flonase 50 MCG/DOSE Flonase 50 MCG/DOSE Flonase 50 MCG/DOSE No 2{spray _in_eac h_nostr il} QD Flonase 50 MCG/DOSE Flonase 50 MCG/DOSE Flonase 50 MCG/DOSE No 2{spray _in_eac h_nostr il} QD Flonase 50 MCG/DOSE Flonase 50 MCG/DOSE Flonase 50 MCG/DOSE No 2{spray _in_eac h_nostr il} QD Flonase 50 MCG/DOSE Flonase 50 MCG/DOSE Flonase 50 MCG/DOSE No 2{spray _in_eac h_nostr il} QD Flonase 50 MCG/DOSE SUMAtriptan Succinate 50 MG SUMAtriptan Succinate 50 MG No QD SUMAtripta n Succinate 50 MG Flonase 50 MCG/DOSE Flonase 50 MCG/DOSE No 2{spray _in_eac h_nostr il} QD Flonase 50 MCG/DOSE Levothyroxi ne Sodium 125 MCG Levothyroxi ne Sodium 125 MCG No QD Levothyrox ine Sodium 125 MCG Ferrous Sulfate 325 (65 Fe) MG Ferrous Sulfate 325 (65 Fe) MG No 1{table t} BID Ferrous Sulfate 325 (65 Fe) MG SUMAtriptan Succinate 50 MG SUMAtriptan Succinate 50 MG No QD SUMAtripta n Succinate 50 MG Flonase 50 MCG/DOSE Flonase 50 MCG/DOSE No 2{spray _in_eac h_nostr il} QD Flonase 50 MCG/DOSE Levothyroxi ne Sodium 125 MCG Levothyroxi ne Sodium 125 MCG No QD Levothyrox ine Sodium 125 MCG Ferrous Sulfate 325 (65 Fe) MG Ferrous Sulfate 325 (65 Fe) MG No 1{table t} BID Ferrous Sulfate 325 (65 Fe) MG Levothyroxi ne Sodium 125 MCG Levothyroxi ne Sodium 125 MCG No QD Levothyrox ine Sodium 125 MCG Flonase 50 MCG/DOSE Flonase 50 MCG/DOSE No 2{spray _in_eac h_nostr il} QD Flonase 50 MCG/DOSE Immunizations Ordered Immunization Name Filled Immunization Name Date Status Comments Source SARS-COV-2 COVID-19 VACCINE - (MODERNA) Unknown Completed [facility] SARS-COV-2 COVID-19 VACCINE - (MODERNA) Unknown Completed [facility] SARS-COV-2 COVID-19 VACCINE - (MODERNA) Unknown Completed [facility] SARS-COV-2 COVID-19 VACCINE - (MODERNA) Unknown Completed [facility] SARS-COV-2 COVID-19 VACCINE - (MODERNA) Unknown Completed [facility] SARS-COV-2 COVID-19 VACCINE - (MODERNA) Unknown Completed [facility] Vital Signs Vital Name Observation Time Observation Value Comments S ource Systolic blood pressure 2023-12-11 16:13:00 142 mm[Hg] [facility] Diastolic blood pressure 2023-12-11 16:13:00 79 mm[Hg] [facility] Heart rate 2023-12-11 16:13:00 68 /min [facility] Body height 2023-12-11 16:13:00 [facility].2 [facility] Body weight 2023-12-11 16:13:00 [facility].897 [facility] BMI 2023-12-11 16:13:00 32.08 kg/m2 [facility] Oxygen saturation in Arterial blood by Pulse oximetry 2023-12-11 16:13:00 97 /min [facility] height 2023-10-22 11:40:00 67 [in_i] Commo n [facility] weight 2023-10-22 11:40:00 198 [lb_av] Comm on [facility] bmi 2023-10-22 11:40:00 31.01 kg/m2 Comm on [facility] Systolic blood pressure 2023-10-15 14:23:00 132 mm[Hg] [place] [facility] Diastolic blood pressure 2023-10-15 14:23:00 81 mm[Hg] [place] [facility] Heart rate 2023-10-15 14:23:00 65 /min [facility] Body temperature 2023-10-15 14:23:00 36.89 [facility] Respiratory rate 2023-10-15 14:23:00 18 /min [facility] Body height 2023-10-15 14:23:00 170.2 cm [facility] Body weight 2023-10-15 14:23:00 91.627 kg [facility] BMI 2023-10-15 14:23:00 31.64 kg/m2 [facility] height 2023-08-21 16:20:00 67 [in_i] Commo n [facility] weight 2023-08-21 16:20:00 198 [lb_av] Comm on [facility] bmi 2023-08-21 16:20:00 31.01 kg/m2 Comm on [facility] height 2023-07-22 13:00:00 67 [in_i] Commo n [facility] weight 2023-07-22 13:00:00 193 [lb_av] Comm on [facility] bmi 2023-07-22 13:00:00 30.22 kg/m2 Comm on [facility] height 2023-07-01 14:00:00 67 [in_i] Commo n [facility] weight 2023-07-01 14:00:00 193 [lb_av] Comm on [facility] temperature 2023-07-01 14:00:00 97.7 [degF] Com [facility] bmi 2023-07-01 14:00:00 30.22 kg/m2 Comm on [facility] oximetry 2023-07-01 14:00:00 98 % Commo n [facility] respiratory rate 2023-07-01 14:00:00 16 /min [facility] blood pressure systolic 2023-07-01 14:00:00 133 mm[Hg] [facility] blood pressure diastolic 2023-07-01 14:00:00 71 mm[Hg] Common [facility] height 2023-04-29 11:40:00 67 [in_i] Commo n [facility] weight 2023-04-29 11:40:00 190 [lb_av] Comm on [facility] temperature 2023-04-29 11:40:00 97.7 [degF] Com mon [facility] bmi 2023-04-29 11:40:00 29.75 kg/m2 Comm on [facility] oximetry 2023-04-29 11:40:00 99 % Commo n [facility] respiratory rate 2023-04-29 11:40:00 16 /min Common [facility] blood pressure systolic 2023-04-29 11:40:00 122 mm[Hg] Common [facility] blood pressure diastolic 2023-04-29 11:40:00 64 mm[Hg] [facility] height 2023-02-07 13:20:00 67 [in_i] Commo n [facility] weight 2023-02-07 13:20:00 187 [lb_av] Comm on [facility] bmi 2023-02-07 13:20:00 29.29 kg/m2 Comm on [facility] height 2023-01-03 10:20:00 67 [in_i] Commo n [facility] weight 2023-01-03 10:20:00 192 [lb_av] Comm on [facility] temperature 2023-01-03 10:20:00 98.6 [degF] Com mon [facility] bmi 2023-01-03 10:20:00 30.07 kg/m2 Comm on [facility] oximetry 2023-01-03 10:20:00 98 % Commo n [facility] respiratory rate 2023-01-03 10:20:00 16 /min Common [facility] blood pressure systolic 2023-01-03 10:20:00 124 mm[Hg] Common [facility] blood pressure diastolic 2023-01-03 10:20:00 72 mm[Hg] [facility] Systolic blood pressure 2022-07-13 14:35:00 129 mm[Hg] [facility] Diastolic blood pressure 2022-07-13 14:35:00 77 mm[Hg] [facility] Heart rate 2022-07-13 14:35:00 70 /min [facility] Body temperature 2022-07-13 14:35:00 36.89 [facility] Respiratory rate 2022-07-13 14:35:00 16 /min [facility] Body height 2022-07-13 14:35:00 170.2 cm [facility] Body weight 2022-07-13 14:35:00 89.721 kg [facility] BMI 2022-07-13 14:35:00 30.98 kg/m2 [facility] Oxygen saturation in Arterial blood by Pulse oximetry 2022-07-13 14:35:00 99 /min [facility] height 2022-07-10 10:20:00 67 [in_i] Commo n [facility] weight 2022-07-10 10:20:00 196.4 [lb_av] Co mmon [facility] temperature 2022-07-10 10:20:00 97.8 [degF] Com mon [facility] bmi 2022-07-10 10:20:00 30.76 kg/m2 Comm on [facility] oximetry 2022-07-10 10:20:00 97 % Commo n [facility] respiratory rate 2022-07-10 10:20:00 15 /min Common [facility] blood pressure systolic 2022-07-10 10:20:00 126 mm[Hg] Common [facility] blood pressure diastolic 2022-07-10 10:20:00 68 mm[Hg] Common [facility] Systolic blood pressure 2021-07-12 15:41:00 127 mm[Hg] [facility] Diastolic blood pressure 2021-07-12 15:41:00 76 mm[Hg] [facility] Heart rate 2021-07-12 15:41:00 68 /min [facility] Body temperature 2021-07-12 15:41:00 37.11 [facility] Respiratory rate 2021-07-12 15:41:00 18 /min [facility] Body height 2021-07-12 15:41:00 170.2 cm [facility] Body weight 2021-07-12 15:41:00 88.905 kg [facility] BMI 2021-07-12 15:41:00 30.70 kg/m2 [facility] height 2021-06-28 11:00:00 67 [in_i] Commo n [facility] weight 2021-06-28 11:00:00 190 [lb_av] Comm on [facility] bmi 2021-06-28 11:00:00 29.75 kg/m2 Comm on [facility] respiratory rate 2021-03-10 08:20:00 16 /min [facility] blood pressure systolic 2021-03-10 08:20:00 100 mm[Hg] Common [facility] blood pressure diastolic 2021-03-10 08:20:00 57 mm[Hg] Common [facility] height 2021-03-10 08:20:00 67.00 [in_i] Com [facility] weight 2021-03-10 08:20:00 190 [lb_av] Comm on [facility] temperature 2021-03-10 08:20:00 97.3 [degF] Com [facility] bmi 2021-03-10 08:20:00 29.75 kg/m2 Comm on [facility] oximetry 2021-03-10 08:20:00 98 % Commo n [facility] height 2021-03-02 10:00:00 67.00 [in_i] Com [facility] weight 2021-03-02 10:00:00 193.6 [lb_av] Co mmon [facility] temperature 2021-03-02 10:00:00 97.9 [degF] Com [facility] bmi 2021-03-02 10:00:00 30.32 kg/m2 Comm on [facility] oximetry 2021-03-02 10:00:00 98 % Commo n [facility] respiratory rate 2021-03-02 10:00:00 16 /min [facility] blood pressure systolic 2021-03-02 10:00:00 124 mm[Hg] Common [facility] blood pressure diastolic 2021-03-02 10:00:00 61 mm[facility]Hg[facility] height 2020-12-01 16:00:00 67.00 [in_i] Com [facility] weight 2020-12-01 16:00:00 210.2 [lb_av] Co [facility] temperature 2020-12-01 16:00:00 98.0 [degF] Com [facility] bmi 2020-12-01 16:00:00 32.92 kg/m2 Comm on [facility] oximetry 2020-12-01 16:00:00 95 % Commo n [facility] respiratory rate 2020-12-01 16:00:00 15 /min [facility] blood pressure systolic 2020-12-01 16:00:00 127 mm[Hg] Common [facility] blood pressure diastolic 2020-12-01 16:00:00 67 mm[Hg] [facility] height 2020-11-03 16:20:00 67.00 [in_i] Com [facility] weight 2020-11-03 16:20:00 210.0 [lb_av] Co [facility] temperature 2020-11-03 16:20:00 97.9 [degF] Com [facility] bmi 2020-11-03 16:20:00 32.89 kg/m2 Comm on [facility] oximetry 2020-11-03 16:20:00 97 % Commo n [facility] respiratory rate 2020-11-03 16:20:00 16 /min [facility] blood pressure systolic 2020-11-03 16:20:00 134 mm[Hg] [facility] blood pressure diastolic 2020-11-03 16:20:00 67 mm[Hg] [facility] Procedures Procedure Date / Time Performed Performing Clinicia n Source ASSIGNMENT OF BENEFITS 2023-10-15 14:15:51 Docto r Unassigned, [place] [facility] REFERRAL- REQUEST/RESPONSE 2022-11-28 05:01:00 Doctor Unassigned, [place] [facility] ASSIGNMENT OF BENEFITS 2022-07-13 14:11:12 Docto r Unassigned, [place] [facility] EXTERNAL PROVIDER RECORDS 2021-08-18 06:01:00 Doctor Unassigned, [place] [facility] Encounters Start Date/Time End Date/Time Encounter Type Admission Type Attending [facility] Facility Care Department Encounter ID Source 2023-08-15 08:24:00 Outpatient Weiss[facility]ice lakhani [facility] [id number] [facility] 2023-02-27 12:54:00 Outpatient [facility] [id number] [facility] 2023-01-01 11:41:00 Outpatient Ronen Weissi [facility] [id number] [facility] 2022-12-18 15:43:00 Outpatient Ronen Weissi [facility] [id number] [facility] 2022-11-07 16:19:00 Outpatient VannessaFlory echevarria [facility] [id number] [facility] 2022-07-11 10:20:00 Outpatient Bernie Carrillo [facility] [id number] [facility] 2022-07-06 13:31:00 Outpatient Carrillo, Na [facility] [id number] [facility] 2021-10-04 14:01:37 Outpatient Carrillo, Na [facility] [id number] [facility] 2021-10-04 13:53:23 Outpatient Carrillo, Na [facility] [id number] [facility] 2021-10-04 13:52:45 Outpatient Carrillo, Na [facility] [id number] [facility] 2021-10-04 13:18:13 Outpatient CarrilloBernie sommer [facility] [id number] [facility] 2021-10-04 12:44:34 Outpatient CarrilloBernie sommer [facility] [id number] [facility] 2021-10-04 12:43:48 Outpatient CarrilloBernie sommer [facility] [id number] [facility] 2021-10-04 12:42:03 Outpatient CarrilloBernie sommer [facility] [id number] [facility] 2021-10-04 12:33:48 Outpatient CarrilloBernie sommer [facility] [id number] [facility] 2021-10-04 12:32:21 Outpatient CarrilloBernie sommer [facility] [id number] [facility] 2023-12-11 11:30:00 2023-12-11 12:01:56 Office Visit Elvia Samuel [facility] [address] [facility] [id number] [facility] 2023-10-30 00:00:00 2023-10-30 00:00:00 (TEL) [facility] [id number] [facility] 2023-10-22 00:00:00 2023-10-22 00:00:00 OFFICE VISIT ESTAB PT LEVEL 4 [facility] [id number] [facility] 2023-10-15 08:30:00 2023-10-15 09:00:00 Office Visit Mickie Pineda [id number] [facility] 2023-10-15 08:30:00 2023-10-15 08:30:00 Outpatient MICKIE CABAN [facility] [id number] [facility] 2023-10-15 00:00:00 2023-10-15 00:00:00 Orders Only Doctor Unassigned, [place] [facility] [id number] [facility] 2023-08-21 00:00:00 2023-08-21 00:00:00 OFFICE VISIT ESTAB PT LEVEL 4 [facility] [id number] [facility] 2023-07-30 10:00:00 2023-07-30 10:00:00 Outpatient MICKIE CABAN [facility] [id number] [facility] 2023-07-25 10:00:39 2023-07-25 10:00:39 Outpatient SFA [facility] [id number] [facility] Naeem 2023-07-22 00:00:00 2023-07-22 00:00:00 (TEL) [facility] [id number] [facility] 2023-07-22 00:00:00 2023-07-22 00:00:00 OFFICE VISIT ESTAB PT LEVEL 3 STLMLC STLMLC [id number] [facility] 2023-07-07 00:00:00 2023-07-07 00:00:00 Outpatient GC_GCBZW_Ka diyala_S [facility] [id number] [facility] 2023-07-01 00:00:00 2023-07-01 00:00:00 OFFICE VISIT ESTAB PT LEVEL 4 STLMLC STLMLC [id number] [facility] 2023-04-29 00:00:00 2023-04-29 00:00:00 OFFICE VISIT ESTAB PT LEVEL 4 STLMLC STLMLC [id number] [facility] 2023-03-19 09:00:00 2023-03-19 09:00:00 Outpatient [facility] [id number] [facility] 2023-03-07 10:50:56 2023-03-07 10:50:56 Outpatient SFA TAYO [id number] [facility] 2023-02-27 00:00:00 2023-02-27 00:00:00 OFFICE VISIT ESTAB PT LEVEL 4 STLMLC STLMLC [id number] [facility] 2023-02-18 00:00:00 2023-02-18 00:00:00 (TEL) STLMLC STLMLC [id number] [facility] 2023-02-07 00:00:00 2023-02-07 00:00:00 OFFICE VISIT ESTAB PT LEVEL 3 STLMLC STLMLC [id number] [facility] 2023-01-03 00:00:00 2023-01-03 00:00:00 OFFICE VISIT ESTAB PT LEVEL 4 STLMLC STLMLC [id number] [facility] 2022-11-28 00:00:00 2022-11-28 00:00:00 Orders Only Doctor Unassigned, [place] [facility] 1.2.840.114 350.1.13.10 4.2.7.2.686 [id number] [id number] [facility] 2022-11-26 09:32:27 2022-11-26 09:32:27 Outpatient SFA SFA [id number] [facility] 2022-11-09 16:29:38 2022-11-09 16:29:38 Outpatient SFA SFA [id number] [facility] 2022-11-07 00:00:00 2022-11-07 00:00:00 (TEL) STLMLC STLMLC [id number] [facility] 2022-10-29 00:00:00 2022-10-29 00:00:00 (TEL) STLMLC STLMLC [id number] [facility] 2022-10-09 08:02:12 2022-10-09 08:02:12 Outpatient SFA SFA [id number] [facility] 2022-08-07 00:00:00 2022-08-07 00:00:00 (TEL) STLMLC STLMLC [id number] [facility] 2022-07-13 09:30:00 2022-07-13 10:06:45 Outpatient R MICKIE [facility]ED[facility] [id number] [facility] 2022-07-13 09:30:00 2022-07-13 10:06:45 Office Visit Mickie Pineda [facility] 1..840.114 350.1.13.10 4.2.7.2.686 [id number] 134 [id number] [facility] 2022-07-13 00:00:00 2022-07-13 00:00:00 Orders Only Doctor Unassigned, [place] [facility] 1..840.114 350.1.13.10 4.2.7.2.686 [id number] [id number] [facility] 2022-07-10 00:00:00 2022-07-10 00:00:00 PREV VISIT EST AGE 40-64 STLMLC STLMLC [id number] [facility] 2022-07-02 00:00:00 2022-07-02 00:00:00 (TEL) STLMLC STLMLC [id number] [facility] 2021-11-08 00:00:00 2021-11-08 00:00:00 OFFICE VISIT EST [facility]EL 3 [id number] 2021-08-18 00:00:00 2021-08-18 00:00:00 Orders Only Doctor Unassigned, [place] [facility] 1.20.114 350.1.13.10 4.2.7.2.686 [id number] [id number] [facility] 2021-08-17 00:00:00 2021-08-17 00:00:00 Case Management Adum, Mickie Schwartz [facility] 1.2.114 350.1.13.10 4.2.7.2.686 [id number] 134 [id number] [facility] 2021-08-01 00:00:00 2021-08-01 00:00:00 Telephone Adum, Mickie Schwartz [facility] 1.2.114 350.1.13.10 4.2.7.2.686 [id number] 134 [id number] [facility] 2021-07-12 10:30:00 2021-07-12 11:29:01 Outpatient R ADMISTY [facility] [id number] [facility] 2021-07-12 10:30:00 2021-07-12 11:29:01 Outpatient R ADUM [facility] [id number] [facility] 2021-07-12 10:17:20 2021-07-12 11:29:01 Office Visit Adum, Mickie [facility] 1.284.114 350.1.13.10 4.2.7.2.686 [id number] 134 [id number] [facility] 2021-07-12 00:00:00 2021-07-12 00:00:00 Orders Only Doctor Unassigned, [place] [facility] 1.2.114 350.1.13.10 4.2.7.2.686 [id number] [id number] [facility] 2021-07-10 00:00:00 2021-07-10 00:00:00 (TEL) STLMLC STLMLC [id number] [facility] 2021-06-28 00:00:00 2021-06-28 00:00:00 OFFICE VISIT EST PT LEVEL 3 STLMLC STLMLC [id number] [facility] 2021-06-02 00:00:00 2021-06-02 00:00:00 (TEL) STLMLC STLMLC [id number] [facility] 2021-05-17 00:00:00 2021-05-17 00:00:00 (TEL) STLMLC STLMLC [id number] [facility] 2021-05-10 00:00:00 2021-05-10 00:00:00 (TEL) STLMLC STLMLC [id number] [facility] 2021-05-03 00:00:00 2021-05-03 00:00:00 OFFICE VISIT EST PT LEVEL 3 STLMLC STLMLC [id number] [facility] 2021-03-10 00:00:00 2021-03-10 00:00:00 OFFICE VISIT EST PT LEVEL 3 STLMLC STLMLC [id number] [facility] 2021-03-02 00:00:00 2021-03-02 00:00:00 OFFICE VISIT EST PT LEVEL 3 STLMLC STLMLC [id number] [facility] 2021-02-27 00:00:00 2021-02-27 00:00:00 (TEL) STLMLC STLMLC [id number] [facility] 2020-12-01 00:00:00 2020-12-01 00:00:00 OFFICE VISIT EST PT LEVEL 3 STLMLC STLMLC [id number] [facility] 2020-11-03 00:00:00 2020-11-03 00:00:00 OFFICE VISIT ESTAB PT LEVEL 4 STLMLC STLC [id number] [facility] 2020-07-14 00:00:00 2020-07-14 00:00:00 Outpatient STLC STLC [id number] [facility] 2019-06-09 13:20:00 2019-06-09 13:20:00 [facility] [id number] [facility] 2018-12-08 13:20:00 2018-12-08 13:20:00 [facility] [place] [id number] [facility] 2018-05-07 14:30:00 2018-05-07 14:30:00 [facility] [id number] [facility] 2018-02-05 14:30:00 2018-02-05 14:30:00 [facility] [id number] [facility] 2018-01-09 14:45:00 2018-01-09 14:45:00 Outpatient [facility] [id number] [facility] Results Test Description Test Time Test Comments Results Result Co mments Source CBC W/AUTO [id number] 00:00:00* Test Item Value Reference Range Interpretation Comme nts NUCLEATED RBCS (test code = 65175-0) 0.0 /100 WBC'S See_Comment [Automated messa ge] The system which generated this result transmitted reference range: 0.0 /100 WBC'S. The reference range was not used to interpret this result as normal/abnormal. ABSOLUTE EOSINOPHILS (test code = 51517-4) 0.22 K/UL See_Comment [Automated messa ge] The system which generated this result transmitted reference range: 0.00-0.50 K/UL. The reference range was not used to interpret this result as normal/abnormal. ABSOLUTE LYMPHOCYTES (test code = 23088-8) 2.05 K/UL See_Comment [Automated messa ge] The system which generated this result transmitted reference range: 1.00-4.00 K/UL. The reference range was not used to interpret this result as normal/abnormal. ABSOLUTE MONOCYTES (test code = 67719-9) 0.29 K/UL See_Comment [Automated messa ge] The system which generated this result transmitted reference range: 0.20-1.00 K/UL. The reference range was not used to interpret this result as normal/abnormal. ABSOLUTE NEUTROPHILS (test code = 92910-3) 2.57 K/UL See_Comment [Automated messa ge] The system which generated this result transmitted reference range: 1.50-7.50 K/UL. The reference range was not used to interpret this result as normal/abnormal. BASOPHILS (test code = 36363-1) 1.2 % EOSINOPHILS (test code = 04053-4) 4.2 % HEMATOCRIT (test code = 39318-0) 39.8 % See_Comment [Automated messa ge] The system which generated this result transmitted reference range: 34.0-45.0 %. The reference range was not used to interpret this result as normal/abnormal. HEMOGLOBIN (test code = 718-7) 12.9 G/DL See_Comment [Automated messa ge] The system which generated this result transmitted reference range: 11.5-15.5 G/DL. The reference range was not used to interpret this result as normal/abnormal. LYMPHOCYTES (test code = 31636-3) 39.4 % MCH (test code = 88043-1) 26.8 PG See_Comment [Automated messa ge] The system which generated this result transmitted reference range: 25.0-33.0 PG. The reference range was not used to interpret this result as normal/abnormal. MCHC (test code = 78254-3) 32.4 G/DL See_Comment [Automated messa ge] The system which generated this result transmitted reference range: 31.0-36.0 G/DL. The reference range was not used to interpret this result as normal/abnormal. MCV (test code = 54699-0) 82.7 fL See_Comment [Automated messa ge] The system which generated this result transmitted reference range: 80.0-99.0 fL. The reference range was not used to interpret this result as normal/abnormal. MONOCYTES (test code = 11797-5) 5.6 % NEUTROPHILS (test code = 66611-2) 49.4 % PLATELET COUNT (test code = 94177-7) 213 K/UL See_Comment [Automated messa ge] The system which generated this result transmitted reference range: 130-400 K/UL. The reference range was not used to interpret this result as normal/abnormal. RBC (test code = 60739-9) 4.81 M/UL See_Comment [Automated messa ge] The system which generated this result transmitted reference range: 3.80-5.40 M/UL. The reference range was not used to interpret this result as normal/abnormal. RDW (test code = 63201-2) 14.2 % See_Comment [Automated messa ge] The system which generated this result transmitted reference range: 11.5-15.0 %. The reference range was not used to interpret this result as normal/abnormal. WBC (test code = 23835-6) 5.2 K/UL See_Comment [Automated messa ge] The system which generated this result transmitted reference range: 3.5-11.0 K/UL. The reference range was not used to interpret this result as normal/abnormal. [id number] 00:00:00* Test Item Value Reference Range Interpretation Comme nts FERRITIN (test code = 55723-9) 34 NG/ML See_Comment [Automated messa ge] The system which generated this result transmitted reference range: 13-200 NG/ML. The reference range was not used to interpret this result as normal/abnormal. HEMOGLOBIN [id number] 00:00:00* Test Item Value Reference Range Interpretation Comme [facility] HEMOGLOBIN A1c (test code = 4548-4) 5.6 % See_Comment [Automated messa ge] The system which generated this result transmitted reference range: 4.2-5.6 %. The reference range was not used to interpret this result as normal/abnormal. FREE [id number] 00:00:00* Test Item Value Reference Range Interpretation Comme nts FREE T3 (test code = 3051-0) 2.7 PG/ML See_Comment [Automated messa ge] The system which generated this result transmitted reference range: 2.2-4.2 PG/ML. The reference range was not used to interpret this result as normal/abnormal. REVERSE [id number] 00:00:00* Test Item Value Reference Range Interpretation Comme [facility] REVERSE T3 (test code = 3052-8) 18.8 ng/dL See_Comment [Automated Feedjita ge] The system which generated this result transmitted reference range: 9.0-27.0 ng/dL. The reference range was not used to interpret this result as normal/abnormal. VITAMIN D,1,34-[id number] 00:00:00* Test Item Value Reference Range Interpretation Comme [facility] VITAMIN D,1,25-DIHYDROXY (test code = 1649-3) 44.4 PG/ML See_Comment [Automated message] The system which generated this result transmitted reference range: 20.0-82.0 PG/ML. The reference range was not used to interpret this result as normal/abnormal. LIPID PANEL WITH REFLEX DIRECT [id number] 00:00:00* Test Item Value Reference Range Interpretation Comme [facility] CALC LDL CHOL (test code = 87994-5) 112 MG/DL See_Comment H [Automated Feedjita ge] The system which generated this result transmitted reference range: <100 MG/DL. The reference range was not used to interpret this result as normal/abnormal. CHOLESTEROL (test code = 2093-3) 181 MG/DL See_Comment [Automated Feedj[employer] ge] The system which generated this result transmitted reference range: <200 MG/DL. The reference range was not used to interpret this result as normal/abnormal. HDL CHOLESTEROL (test code = 2085-9) 41 MG/DL See_Comment [Automated Feedjita ge] The system which generated this result transmitted reference range: >39 MG/DL. The reference range was not used to interpret this result as normal/abnormal. RISK RATIO LDL/HDL (test code = 63232-9) 2.73 RATIO See_Comment [Automated message] The system which generated this result transmitted reference range: <3.22 RATIO. The reference range was not used to interpret this result as normal/abnormal. TRIGLYCERIDES (test code = 2571-8) 165 MG/DL See_Comment H [Automated Feedjita ge] The system which generated this result transmitted reference range: <150 MG/DL. The reference range was not used to interpret this result as normal/abnormal. TSH + FREE T4 [id number] 00:00:00* Test Item Value Reference Range Interpretation Comme [facility] FREE T4 (THYROXINE) (test code = 3024-7) 1.35 NG/DL See_Comment [Automated message] The system which generated this result transmitted reference range: 0.80-1.90 NG/DL. The reference range was not used to interpret this result as normal/abnormal. TSH, THIRD GENERATION (test code = 99889-3) 4.760 UIU/ML See_Comment H [Automated messa ge] The system which generated this result transmitted reference range: 0.400-4.100 UIU/ML. The reference range was not used to interpret this result as normal/abnormal. COMPREHENSIVE METABOLIC [id number] 00:00:00* Test Item Value Reference Range Interpretation Comme nts ALBUMIN (test code = 1751-7) 4.1 G/DL See_Comment [Automated messa ge] The system which generated this result transmitted reference range: 3.5-5.2 G/DL. The reference range was not used to interpret this result as normal/abnormal. ALKALINE PHOSPHATASE (test code = 6768-6) 67 U/L See_Comment [Automated message] The system which generated this result transmitted reference range: 40-116 U/L. The reference range was not used to interpret this result as normal/abnormal. BILIRUBIN, TOTAL (test code = 1975-2) 0.3 MG/DL See_Comment [Automated message] The system which generated this result transmitted reference range: <=1.2 MG/DL. The reference range was not used to interpret this result as normal/abnormal. BUN (test code = 3094-0) 9 MG/DL See_Comment [Automated messa ge] The system which generated this result transmitted reference range: 6-20 MG/DL. The reference range was not used to interpret this result as normal/abnormal. CALCIUM (test code = 23579-2) 9.8 MG/DL See_Comment [Automated messa ge] The system which generated this result transmitted reference range: 8.5-10.5 MG/DL. The reference range was not used to interpret this result as normal/abnormal. CALC A/G RATIO (test code = 1759-0) 1.5 RATIO See_Comment [Automated messa ge] The system which generated this result transmitted reference range: 1.0-2.6 RATIO. The reference range was not used to interpret this result as normal/abnormal. CALC BUN/CREAT (test code = 3097-3) 12 RATIO See_Comment [Automated messa ge] The system which generated this result transmitted reference range: 6-28 RATIO. The reference range was not used to interpret this result as normal/abnormal. CALC GLOBULIN (test code = 15724-5) 2.7 G/DL See_Comment [Automated messa ge] The system which generated this result transmitted reference range: 1.9-3.7 G/DL. The reference range was not used to interpret this result as normal/abnormal. CARBON DIOXIDE (test code = 1963-8) 24 MEQ/L See_Comment [Automated messa ge] The system which generated this result transmitted reference range: 19-31 MEQ/L. The reference range was not used to interpret this result as normal/abnormal. CHLORIDE (test code = 2075-0) 105 MEQ/L See_Comment [Automated messa ge] The system which generated this result transmitted reference range: 95-107 MEQ/L. The reference range was not used to interpret this result as normal/abnormal. CREATININE (test code = 2160-0) 0.77 MG/DL See_Comment [Automated messa ge] The system which generated this result transmitted reference range: 0.60-1.30 MG/DL. The reference range was not used to interpret this result as normal/abnormal. eGFR (2020 CKD-EPI) (test code = 09306-5) 97 ML/MIN/1.73 See_Comment [Automated messa ge] The system which generated this result transmitted reference range: >60 ML/MIN/1.73. The reference range was not used to interpret this result as normal/abnormal. GLUCOSE (test code = 1558-6) 92 MG/DL See_Comment [Automated messa ge] The system which generated this result transmitted reference range: 70-99 MG/DL. The reference range was not used to interpret this result as normal/abnormal. POTASSIUM (test code = 2823-3) 5.0 MEQ/L See_Comment [Automated messa ge] The system which generated this result transmitted reference range: 3.5-5.4 MEQ/L. The reference range was not used to interpret this result as normal/abnormal. PROTEIN, TOTAL (test code = 2885-2) 6.8 G/DL See_Comment [Automated messa ge] The system which generated this result transmitted reference range: 6.1-8.3 G/DL. The reference range was not used to interpret this result as normal/abnormal. AST (test code = 1920-8) 20 U/L See_Comment [Automated messa ge] The system which generated this result transmitted reference range: 9-40 U/L. The reference range was not used to interpret this result as normal/abnormal. ALT (test code = 1742-6) 27 U/L See_Comment [Automated messa ge] The system which generated this result transmitted reference range: 5-40 U/L. The reference range was not used to interpret this result as normal/abnormal. SODIUM (test code = 2951-2) 141 MEQ/L See_Comment [Automated messa ge] The system which generated this result transmitted reference range: 133-146 MEQ/L. The reference range was not used to interpret this result as normal/abnormal. FREE [id number] 00:00:00* Test Item Value Reference Range Interpretation Comme nts FREE T3 (test code = 3051-0) 2.2 PG/ML See_Comment [Automated messa ge] The system which generated this result transmitted reference range: 2.2-4.2 PG/ML. The reference range was not used to interpret this result as normal/abnormal. REVERSE [id number] 00:00:00* Test Item Value Reference Range Interpretation Comme nts REVERSE T3 (test code = 3052-8) 14.8 ng/dL See_Comment [Automated messa ge] The system which generated this result transmitted reference range: 9.0-27.0 ng/dL. The reference range was not used to interpret this result as normal/abnormal. TSH + FREE T4 [id number] 00:00:00* Test Item Value Reference Range Interpretation Comme nts FREE T4 (THYROXINE) (test code = 3024-7) 1.14 NG/DL See_Comment [Automated message] The system which generated this result transmitted reference range: 0.80-1.90 NG/DL. The reference range was not used to interpret this result as normal/abnormal. TSH, THIRD GENERATION (test code = 49683-5) 5.940 UIU/ML See_Comment H [Automated messa ge] The system which generated this result transmitted reference range: 0.400-4.100 UIU/ML. The reference range was not used to interpret this result as normal/abnormal. CBC W/AUTO [id number] 00:00:00* Test Item Value Reference Range Interpretation Comme nts NUCLEATED RBCS (test code = 09836-9) 0.0 /100 WBC'S See_Comment [Automated messa ge] The system which generated this result transmitted reference range: 0.0 /100 WBC'S. The reference range was not used to interpret this result as normal/abnormal. ABSOLUTE EOSINOPHILS (test code = 37054-5) 0.20 K/UL See_Comment [Automated messa ge] The system which generated this result transmitted reference range: 0.00-0.50 K/UL. The reference range was not used to interpret this result as normal/abnormal. ABSOLUTE LYMPHOCYTES (test code = 16214-7) 1.73 K/UL See_Comment [Automated messa ge] The system which generated this result transmitted reference range: 1.00-4.00 K/UL. The reference range was not used to interpret this result as normal/abnormal. ABSOLUTE MONOCYTES (test code = 60657-2) 0.35 K/UL See_Comment [Automated messa ge] The system which generated this result transmitted reference range: 0.20-1.00 K/UL. The reference range was not used to interpret this result as normal/abnormal. ABSOLUTE NEUTROPHILS (test code = 45893-2) 3.87 K/UL See_Comment [Automated messa ge] The system which generated this result transmitted reference range: 1.50-7.50 K/UL. The reference range was not used to interpret this result as normal/abnormal. BASOPHILS (test code = 90563-7) 1.4 % EOSINOPHILS (test code = 91523-2) 3.2 % HEMATOCRIT (test code = 18067-9) 39.7 % See_Comment [Automated messa ge] The system which generated this result transmitted reference range: 34.0-45.0 %. The reference range was not used to interpret this result as normal/abnormal. HEMOGLOBIN (test code = 718-7) 13.2 G/DL See_Comment [Automated messa ge] The system which generated this result transmitted reference range: 11.5-15.5 G/DL. The reference range was not used to interpret this result as normal/abnormal. LYMPHOCYTES (test code = 22656-1) 27.6 % MCH (test code = 74063-8) 26.3 PG See_Comment [Automated messa ge] The system which generated this result transmitted reference range: 25.0-33.0 PG. The reference range was not used to interpret this result as normal/abnormal. MCHC (test code = 40327-6) 33.2 G/DL See_Comment [Automated messa ge] The system which generated this result transmitted reference range: 31.0-36.0 G/DL. The reference range was not used to interpret this result as normal/abnormal. MCV (test code = 79792-0) 79.2 fL See_Comment L [Automated messa ge] The system which generated this result transmitted reference range: 80.0-99.0 fL. The reference range was not used to interpret this result as normal/abnormal. MONOCYTES (test code = 26761-7) 5.6 % NEUTROPHILS (test code = 31914-2) 61.9 % PLATELET COUNT (test code = 80787-0) 273 K/UL See_Comment [Automated messa ge] The system which generated this result transmitted reference range: 130-400 K/UL. The reference range was not used to interpret this result as normal/abnormal. RBC (test code = 78586-6) 5.01 M/UL See_Comment [Automated messa ge] The system which generated this result transmitted reference range: 3.80-5.40 M/UL. The reference range was not used to interpret this result as normal/abnormal. RDW (test code = 50337-1) 14.8 % See_Comment [Automated messa ge] The system which generated this result transmitted reference range: 11.5-15.0 %. The reference range was not used to interpret this result as normal/abnormal. WBC (test code = 30176-2) 6.3 K/UL See_Comment [Automated messa ge] The system which generated this result transmitted reference range: 3.5-11.0 K/UL. The reference range was not used to interpret this result as normal/abnormal. [id number] 00:00:00* Test Item Value Reference Range Interpretation Comme nts FERRITIN (test code = 23696-0) 29 NG/ML See_Comment [Automated messa ge] The system which generated this result transmitted reference range: 13-200 NG/ML. The reference range was not used to interpret this result as normal/abnormal. HEMOGLOBIN [id number] 00:00:00* Test Item Value Reference Range Interpretation [facility] HEMOGLOBIN A1c (test code = 4548-4) 5.5 % See_Comment [Automated messa ge] The system which generated this result transmitted reference range: 4.2-5.6 %. The reference range was not used to interpret this result as normal/abnormal. FREE [id number] 00:00:00* Test Item Value Reference [facility] (test code = 3051-0) 2.9 PG/ML See_Comment [Automated messa ge] The system which generated this result transmitted reference range: 2.2-4.2 PG/ML. The reference range was not used to interpret this result as normal/abnormal. REVERSE 00:00:00* Test Item Value Reference Range Interpretation [facility] REVERSE T3 (test code = 3052-8) 28.0 ng/dL See_Comment H [Automated messa ge] The system which generated this result transmitted reference range: 9.0-27.0 ng/dL. The reference range was not used to interpret this result as normal/abnormal. VITAMIN D,1,34-[id number] 00:00:00* Test Item Value Reference Range Interpretation [facility] VITAMIN D,1,25-DIHYDROXY (test code = 1649-3) 54.6 PG/ML See_Comment [Automated message] The system which generated this result transmitted reference range: 20.0-82.0 PG/ML. The reference range was not used to interpret this result as normal/abnormal. IRON BINDING CAPACITY AND IRON AND % [id number] 00:00:00* Test Item Value Reference Range Interpretation [facility] CALC % IRON SAT (test code = 2502-3) 29 % See_Comment [Automated messa ge] The system which generated this result transmitted reference range: 20-50 %. The reference range was not used to interpret this result as normal/abnormal. CALC TOTAL IBC (test code = 11708-5) 350 UG/DL See_Comment [Automated messa ge] The system which generated this result transmitted reference range: 250-450 UG/DL. The reference range was not used to interpret this result as normal/abnormal. IRON, SERUM (test code = 2498-4) 103 UG/DL See_Comment [Automated messa ge] The system which generated this result transmitted reference range: 37-145 UG/DL. The reference range was not used to interpret this result as normal/abnormal. UNSATURATED IBC (test code = 2501-5) 247 UG/DL See_Comment [Automated messa ge] The system which generated this result transmitted reference range: 112-347 UG/DL. The reference range was not used to interpret this result as normal/abnormal. TSH + FREE T4 [id number] 00:00:00* Test Item Value Reference Range Interpretation Comme nts FREE T4 (THYROXINE) (test code = 3024-7) 1.71 NG/DL See_Comment [Automated message] The system which generated this result transmitted reference range: 0.80-1.90 NG/DL. The reference range was not used to interpret this result as normal/abnormal. TSH, THIRD GENERATION (test code = 17316-9) 0.222 UIU/ML See_Comment L [Automated messa ge] The system which generated this result transmitted reference range: 0.400-4.100 UIU/ML. The reference range was not used to interpret this result as normal/abnormal. COMPREHENSIVE METABOLIC [id number] 00:00:00* Test Item Value Reference Range Interpretation Comme nts ALBUMIN (test code = 1751-7) 4.5 G/DL See_Comment [Automated messa ge] The system which generated this result transmitted reference range: 3.5-5.2 G/DL. The reference range was not used to interpret this result as normal/abnormal. ALKALINE PHOSPHATASE (test code = 6768-6) 88 U/L See_Comment [Automated message] The system which generated this result transmitted reference range: 40-116 U/L. The reference range was not used to interpret this result as normal/abnormal. BILIRUBIN, TOTAL (test code = 1975-2) 0.4 MG/DL See_Comment [Automated message] The system which generated this result transmitted reference range: <=1.2 MG/DL. The reference range was not used to interpret this result as normal/abnormal. BUN (test code = 3094-0) 11 MG/DL See_Comment [Automated messa ge] The system which generated this result transmitted reference range: 6-20 MG/DL. The reference range was not used to interpret this result as normal/abnormal. CALCIUM (test code = 34575-8) 9.9 MG/DL See_Comment [Automated messa ge] The system which generated this result transmitted reference range: 8.5-10.5 MG/DL. The reference range was not used to interpret this result as normal/abnormal. CALC A/G RATIO (test code = 1759-0) 1.7 RATIO See_Comment [Automated messa ge] The system which generated this result transmitted reference range: 1.0-2.6 RATIO. The reference range was not used to interpret this result as normal/abnormal. CALC BUN/CREAT (test code = 3097-3) 14 RATIO See_Comment [Automated messa ge] The system which generated this result transmitted reference range: 6-28 RATIO. The reference range was not used to interpret this result as normal/abnormal. CALC GLOBULIN (test code = 87866-7) 2.7 G/DL See_Comment [Automated messa ge] The system which generated this result transmitted reference range: 1.9-3.7 G/DL. The reference range was not used to interpret this result as normal/abnormal. CARBON DIOXIDE (test code = 1963-8) 25 MEQ/L See_Comment [Automated messa ge] The system which generated this result transmitted reference range: 19-31 MEQ/L. The reference range was not used to interpret this result as normal/abnormal. CHLORIDE (test code = 2075-0) 104 MEQ/L See_Comment [Automated messa ge] The system which generated this result transmitted reference range: 95-107 MEQ/L. The reference range was not used to interpret this result as normal/abnormal. CREATININE (test code = 2160-0) 0.78 MG/DL See_Comment [Automated messa ge] The system which generated this result transmitted reference range: 0.60-1.30 MG/DL. The reference range was not used to interpret this result as normal/abnormal. eGFR (2020 CKD-EPI) (test code = 60244-6) 95 ML/MIN/1.73 See_Comment [Automated messa ge] The system which generated this result transmitted reference range: >60 ML/MIN/1.73. The reference range was not used to interpret this result as normal/abnormal. GLUCOSE (test code = 1558-6) 81 MG/DL See_Comment [Automated messa ge] The system which generated this result transmitted reference range: 70-99 MG/DL. The reference range was not used to interpret this result as normal/abnormal. POTASSIUM (test code = 2823-3) 4.9 MEQ/L See_Comment [Automated messa ge] The system which generated this result transmitted reference range: 3.5-5.4 MEQ/L. The reference range was not used to interpret this result as normal/abnormal. PROTEIN, TOTAL (test code = 2885-2) 7.2 G/DL See_Comment [Automated messa ge] The system which generated this result transmitted reference range: 6.1-8.3 G/DL. The reference range was not used to interpret this result as normal/abnormal. AST (test code = 1920-8) 18 U/L See_Comment [Automated messa ge] The system which generated this result transmitted reference range: 9-40 U/L. The reference range was not used to interpret this result as normal/abnormal. ALT (test code = 1742-6) 18 U/L See_Comment [Automated messa ge] The system which generated this result transmitted reference range: 5-40 U/L. The reference range was not used to interpret this result as normal/abnormal. SODIUM (test code = 2951-2) 141 MEQ/L See_Comment [Automated messa ge] The system which generated this result transmitted reference range: 133-146 MEQ/L. The reference range was not used to interpret this result as normal/abnormal.
[2024-01-15 14:50] LABS: Absolute Basophils 0.1 K/uL (0-0.5); Absolute Eosinophils 0.3 K/uL (0-0.5); Absolute Lymphocytes (CBC) 2.1 K/uL (0.7-4.9); Absolute Monocytes 0.5 K/uL (0.1-1.3); Absolute Neutrophil 4.3 K/uL (1.8-8.0); Basophils % 0.9 % (0-1.3); Eosinophils % 3.5 % (0-4.4); Hematocrit 41.3 % (36.0-45.0); Hemoglobin 13.4 g/dL (12.0-15.0); Lymphocytes % 29.8 % (15.3-44.8); MCH 26.1 pg (27.0-35.0); MCHC 32.5 g/dL (32.0-36.0); MCV 80.3 fL (80-100); MPV 8.7 fL (7.6-11.3); Monocytes % 6.3 % (3.3-12.3); Neutrophils % 59.5 % (41.7-73.7); Platelets 249 thou/uL (152-406); RBC Red Blood Cell Count 5.14 M/uL (3.86-4.86)
[2024-01-15] MEDS ORDERED: ASPIRIN 81 MG CHEWABLE TABLET ONE (15:09)
[2024-01-15 15:13] LABS: Anion Gap 9.7 mEq/L (5.0-15.0); Magnesium 1.9 mg/dL (1.6-2.4); Potassium 3.7 mEq/L (3.5-5.1); Troponin High Sensitivity 3.1 pg/mL (<58.9)
--- NOTE | 2024-01-15 15:19 | RAD REPORT ---
EXAM DESCRIPTION: RAD - Chest Single View - 01/15/2024 3:11 pm CLINICAL HISTORY: CHEST PAIN Chest pain. COMPARISON: CHEST PA AND LAT 2 VIEW dated 06/24/2015 FINDINGS: Portable technique limits examination quality. The lungs are grossly clear. The heart is normal in size. No displaced fractures. IMPRESSION: No acute intrathoracic process suspected.
--- NOTE | 2024-01-15 17:37 | EDPHYS ---
Physician Documentation [facility] Name: Anat Elaine Age: 48 yrs Sex: Female : 1975 Arrival Date: 01/15/2024 Time: 14:22 Bed 15 Private MD: Baltazar Romano ED Physician Jimy Bloom HPI: 01/14 17:54 This 48 yrs old Female presents to ER via Ambulatory with complaints of Chest kb Pain. 17:54 Pt is a 48 year old female who presents for chest pain that started one week ago. kb States pain goes into left arm and she feels like her jaw tightens up at times. Denies shortness of breath. Denies cardiac history. 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 - Infectious Disease History:: Denies. - Social history:: Smoking status: Patient denies any tobacco usage or history of. ROS: 17:53 Constitutional: As per HPI kb Exam: 14:48 Constitutional: This is a well developed, well nourished patient who is awake, alert, kb and in no acute distress. Head/Face: Normocephalic, atraumatic. ENT: Moist Mucous membranes Cardiovascular: Regular rate Respiratory: Respirations even and unlabored. No increased work of breathing. Talking in full sentences Abdomen/GI: Soft, non-tender. No distention Skin: Warm, dry with normal turgor. Normal color. MS/ Extremity: Pulses equal, no cyanosis. Neurovascular intact. Full, normal range of motion. Neuro: Awake and alert, GCS 15, oriented to person, place, time, and situation. Moves all extremities. Normal gait. 14:48 ECG was reviewed by the Attending Physician. Vital Signs: 14:29 BP 143 / 75; Pulse 83; Resp 16; Temp 97.1; Pulse Ox 98% ; Weight 90.72 kg; Height 5 ft. iw 7 in. ; Pain 7/10; 15:19 BP 138 / 77; Pulse 62; Resp 16; Pulse Ox 96% on R/A; Pain 6/10; tl4 15:30 BP 113 / 68; Pulse 68; Resp 16; Pulse Ox 98% on R/A; tl4 16:00 BP 122 / 77; Pulse 69; Resp 18; Pulse Ox 100% on R/A; tl4 16:30 BP 112 / 70; Pulse 64; Resp 19; Pulse Ox 100% on R/A; Pain 2/10; tl4 17:00 BP 117 / 65; Pulse 64; Resp 15; Pulse Ox 100% on R/A; tl4 17:54 BP 119 / 72; Pulse 66; Resp 16; Temp 98.1(O); Pulse Ox 99% ; Pain 0/10; tl4 14:29 Body Mass Index 31.32 (90.72 kg, 170.18 cm) iw 14:29 Pain Scale: Adult iw 15:19 Pain Scale: Adult tl4 16:30 Pain Scale: Adult tl4 17:54 Pain Scale: Adult tl4 MDM: 14:27 Patient medically screened. kb 17:15 Data reviewed: vital signs, nurses notes. kb 17:53 Counseling: I had a detailed discussion with the patient and/or guardian regarding the kb historical points, exam findings, and any diagnostic results supporting the discharge/admit diagnosis, lab results, radiology results, the need for outpatient follow up, a route rider, a family practitioner, to return to the emergency department if symptoms worsen or persist or if there are any questions or concerns that arise at home. ED course: HEART score 2. 17:54 Differential diagnosis: abnormal EKG, acute myocardial infarction, coronary artery kb disease chest wall pain. The patient was given aspirin in the Emergency Department. Consideration of Admission/Observation Escalation of care including admission/observation considered. admission considered for chest pain, but serial troponins normal and HEART score 2. 01/14 14:33 Order name: Basic Metabolic Panel; Complete Time: 15:17 kb 01/14 14:33 Order name: CBC with Diff; Complete Time: 14:52 kb 01/14 14:33 Order name: Magnesium; Complete Time: 15:17 kb 01/14 14:33 Order name: NT PRO-BNP; Complete Time: 15:17 kb 01/14 14:33 Order name: Troponin HS; Complete Time: 15:17 kb 01/14 16:19 Order name: Troponin High Sensitivity; Complete Time: 17:14 kb 01/14 14:33 Order name: XRAY Chest (1 view); Complete Time: 15:22 kb 01/14 14:33 Order name: EKG; Complete Time: 14:34 kb 01/14 14:33 Order name: Cardiac monitoring; Complete Time: 14:39 kb 01/14 14:33 Order name: EKG - Nurse/Tech; Complete Time: 14:39 kb 01/14 14:33 Order name: IV Saline Lock; Complete Time: 14:46 kb 01/14 14:33 Order name: Labs collected and sent; Complete Time: 14:46 kb 01/14 14:33 Order name: O2 Per Protocol; Complete Time: 14:39 kb 01/14 14:33 Order name: O2 Sat Monitoring; Complete Time: 14:39 kb EC:48 Rate is 72 beats/min. Rhythm is regular. QRS [place] is Normal. AR interval is normal at kb 172 msec. QRS interval is normal at 106 msec. QT interval is normal at 424 msec. Administered Medications: 15:18 Drug: Aspirin PO Chewable Tablet 324 mg PO once; 81 mg tablets x 4 Route: PO; tl4 17:38 Follow up: Response: No adverse reaction tl4 Disposition: 16:32 I was immediately available on-site in the Emergency Department for consultation in the ms3 care of the patient. Disposition Summary: 01/15/24 17:36 Discharge Ordered Notes: Location: Home kb Condition: Stable kb Diagnosis - Chest pain, unspecified kb Followup: kb - With: Emergency Department - When: As needed - Reason: Worsening of condition Followup: kb - With: Private Physician - When: 2 - 3 days - Reason: Recheck today's complaints, Continuance of care, Re-evaluation by your physician Discharge Instructions: - Discharge Summary Sheet kb - Nonspecific Chest Pain, Adult, [id number] kb Forms: - Medication Reconciliation Form kb - Antibiotic Education kb - Prescription Opioid Use kb - Patient Portal Instructions kb - Leadership Thank You Letter kb Signatures: Dispatcher [employer] Nessa Wick FNP-C FNP-Hortencia Sellers RN RN iw Sims, Marcus, DO DO ms3 Emilio Mccormick RN RN tl4
--- NOTE | 2024-01-15 17:37 | ER ---
Nurse's Notes [facility] Name: Anat Elaine Age: 48 yrs Sex: Female : 1975 Arrival Date: 01/15/2024 Time: 14:22 Bed 15 Private MD: Baltazar Romano Diagnosis: Chest pain, unspecified Presentation: 01/14 14:29 Chief complaint: Patient states: chest pain on left side radiating to arm X 1 week, my iw jaw hurts, I've been getting headaches and feeling dizzy and tired. Coronavirus screen: At this time, the client does not indicate any symptoms associated with coronavirus-19. Ebola Screen: Patient negative for fever greater than or equal to 101.5 degrees Fahrenheit, and additional compatible Ebola Virus Disease symptoms Patient denies exposure to infectious person. Patient denies travel to an Ebola-affected area in the 21 days before illness onset. No symptoms or risks identified at this time. Initial Sepsis Screen: Does the patient meet any 2 criteria? No. Patient's initial sepsis screen is negative. Does the patient have a suspected source of infection? No. Patient's initial sepsis screen is negative. Risk Assessment: Do you want to hurt yourself or someone else? Patient reports no desire to harm self or others. Onset of symptoms was January 08, 2024. 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 - Infectious Disease History:: Denies. - Social history:: Smoking status: Patient denies any tobacco usage or history of. Screenin:20 [facility] ED Fall Risk Assessment (Adult) History of falling in the last 3 months, tl4 including since admission No falls in past 3 months (0 pts) Confusion or Disorientation No (0 pts) Intoxicated or Sedated No (0 pts) Impaired Gait No (0 pts) Mobility Assist Device Used No (0 pt) Altered Elimination No (0 pt) Score/Fall Risk Level 0 - 2 = Low Risk Oriented to surroundings, Maintained a safe environment, Educated pt \T\ family on fall prevention, incl call for assistance when getting out of bed, Assessed \T\ reinforced patient's understanding of fall precautions, Hourly rounding (assess needs \T\ fall precautionary measures) done, Used ambulatory aids as needed (educated on \T\ assisted with), Used gait belt as appropriate. Abuse screen: Denies threats or abuse. Denies injuries from another. Nutritional screening: No deficits noted. Tuberculosis screening: No symptoms or risk factors identified. Assessment: 15:18 General: Appears in no apparent distress. Behavior is calm, cooperative. Pain: tl4 Complains of pain in face, chest and left arm Pain radiates to face and left arm Pain began gradually, 2-3 days ago. Neuro: Level of Consciousness is awake, alert, obeys commands, Oriented to person, place, time, situation, Manager Cosmetics are equal bilaterally Moves all extremities. Full function Gait is steady, Speech is normal. Cardiovascular: Capillary refill < 3 seconds Patient's skin is warm and dry. Respiratory: Airway is patent Respiratory effort is even, unlabored, Respiratory pattern is regular, symmetrical, Breath sounds are clear bilaterally. GI: No signs and/or symptoms were reported involving the gastrointestinal system. : No signs and/or symptoms were reported regarding the genitourinary system. EENT: No signs and/or symptoms were reported regarding the EENT system. Derm: No signs and/or symptoms reported regarding the dermatologic system. Musculoskeletal: No signs and/or symptoms reported regarding the musculoskeletal system. 16:20 Reassessment: Patient and/or family updated on plan of care and expected duration. Pain tl4 level reassessed. Patient is alert, oriented x 3, equal unlabored respirations, skin warm/dry/pink. Patient denies pain at this time. Patient states feeling better. 17:09 Reassessment: No changes from previously documented assessment. Patient and/or family tl4 updated on plan of care and expected duration. Pain level reassessed. Patient is alert, oriented x 3, equal unlabored respirations, skin warm/dry/pink. 17:53 Reassessment: No changes from previously documented assessment. Patient and/or family tl4 updated on plan of care and expected duration. Pain level reassessed. Patient is alert, oriented x 3, equal unlabored respirations, skin warm/dry/pink. Vital Signs: 14:29 BP 143 / 75; Pulse 83; Resp 16; Temp 97.1; Pulse Ox 98% ; Weight 90.72 kg; Height 5 ft. iw 7 in. ; Pain 7/10; 15:19 BP 138 / 77; Pulse 62; Resp 16; Pulse Ox 96% on R/A; Pain 6/10; tl4 15:30 BP 113 / 68; Pulse 68; Resp 16; Pulse Ox 98% on R/A; tl4 16:00 BP 122 / 77; Pulse 69; Resp 18; Pulse Ox 100% on R/A; tl4 16:30 BP 112 / 70; Pulse 64; Resp 19; Pulse Ox 100% on R/A; Pain 2/10; tl4 17:00 BP 117 / 65; Pulse 64; Resp 15; Pulse Ox 100% on R/A; tl4 17:54 BP 119 / 72; Pulse 66; Resp 16; Temp 98.1(O); Pulse Ox 99% ; Pain 0/10; tl4 14:29 Body Mass Index 31.32 (90.72 kg, 170.18 cm) iw 14:29 Pain Scale: Adult iw 15:19 Pain Scale: Adult tl4 16:30 Pain Scale: Adult tl4 17:54 Pain Scale: Adult tl4 ED Course: 14:25 Patient arrived in ED. mr 14:25 Baltazar Romano MD is Private Physician. mr 14:27 N[facility] Knowles [facility]-C [facility] kb 14:27 Jimy Bloom DO is Attending Physician. kb 14:30 Triage completed. iw 14:31 Arm band placed on. iw 14:46 Troponin HS Sent. bc6 14:46 NT PRO-BNP Sent. bc6 14:46 Magnesium Sent. bc6 14:46 Basic Metabolic Panel Sent. bc6 14:47 CBC with Diff Sent. bc6 14:47 Initial lab(s) drawn, by me, sent to lab. Inserted saline lock: 20 gauge in right bc6 antecubital area, using aseptic technique. Blood collected. 15:06 Emilio Mccormick, RN is Primary Nurse. tl4 15:13 XRAY Chest (1 view) In Process Unspecified. EDMS 15:20 Patient has correct armband on for positive identification. Placed in gown. Bed in low tl4 position. Call light in reach. Side rails up X 1. Provided Education on: ED process. Client placed on continuous cardiac and pulse oximetry monitoring. NIBP monitoring applied. hospital clinic assistant on. Door closed. Noise minimized. Moved to private room. Warm blanket given. 15:21 No provider procedures requiring assistance completed. O2 via room air. tl4 17:54 IV discontinued, intact, bleeding controlled, No redness/swelling at site. Pressure tl4 dressing applied. Administered Medications: 15:18 Drug: Aspirin PO Chewable Tablet 324 mg PO once; 81 mg tablets x 4 Route: PO; tl4 17:38 Follow up: Response: No adverse reaction tl4 Medication: 15:20 VIS not applicable for this client. tl4 Outcome: 17:36 Discharge ordered by . paul 17:54 Discharged to home ambulatory, tl4 17:54 Condition: stable 17:54 Discharge instructions given to patient, Instructed on discharge instructions, follow up and referral plans. Demonstrated understanding of instructions, follow-up care, 17:55 Patient left the ED. tl4 Signatures: Dispatcher [employer] EDMS Nessa Knowles, EQUITIES ANALYST-C EQUITIES ANALYST-Ckb Chana Bush, Reg Reg mr Hortencia Liang, RN RN Betty Alicea [facility] Emilio Mccormick, RN RN tl4
[2024-01-15 18:31] VITALS: BP 119/72; TEMP 98.1; O2SAT 99
--- NOTE | 2024-01-16 14:02 | EKG ---
Test Date: 2024-01-15 Test Time: 14:37:41 Etl Consultant: DONALD MEASUREMENT RESULTS: Intervals: Rate: 72 VA: 172 QRSD: 106 QT: 388 QTc: 424 [place]: P: 49 VA: 172 QRS: 12 T: 48 INTERPRETIVE STATEMENTS: Normal sinus rhythm Normal ECG Compared to ECG 01/29/2018 08:25:33 Sinus bradycardia no longer present Electronically Signed On 01-16-24 13:59:43 CDT by Jake Sutherland
== END 2024-01-15 17:55 | disposition home or self-care (01) ==
LOC: ER 14:22
DX: R07.9 Chest pain, unspecified (principal); E03.9 Hypothyroidism, unspecified; Z88.0 Allergy status to penicillin
CPT/HCPCS: 36415; 71045; 80048; 83735; 83880; 84484; 85025; 93005